=== PATIENT | male | born 1970 | race Caucasian/White ===

== ENCOUNTER 2023-09-05 20:16 | Inpatient (IN) | payer OTHER ==
[2023-09-05] MEDS: DILTIAZEM DRIP BOLUS FROM BAG 1 MG SOLN IV ONE (21:08)
[2023-09-05] MEDS: DILTIAZEM 125 MG in SODIUM CHLORIDE 0.9% 100 ML IV SCH (21:09)
[2023-09-05 21:13] LABS: Basophils # (A) 0.1 k/uL (0-0.2); Basophils % (A) 1 %; Eosinophils # (A) 0.3 k/uL (0-0.7); Eosinophils % (A) 2 %; HCT 36.7 % (39.0-53.0); Lymphocytes # (A) 2.2 k/uL (1.0-4.8); Lymphocytes % (A) 18 %; MCV 86.3 fL (80.0-100.0); Mean Platelet Volume 8.4; Monocytes # (A) 0.5 k/uL (0-1.0); Monocytes % (A) 4 %; Neutrophils % (A) 74 %; Platelet Count 222 k/uL (150-450); Poikilocytosis Slight; RBC 4.26 m/uL (4.30-5.90); RDW 14.9 % (11.5-15.5); WBC 12.2 k/uL (3.8-10.6)
[2023-09-05 21:15] LABS: MCH 30.4 pg (25.0-35.0); MCHC 35.5 g/dL (31.0-37.0)
[2023-09-05 21:25] LABS: INR 1.1 (<1.2); Partial Thromboplastin Time 31.5 sec (22.0-30.0); Prothrombin Time 12.2 sec (10.0-12.5)
[2023-09-05 21:27] LABS: ALT 17 U/L (4-49); AST 19 U/L (17-59); African American GFR (CKD) 67 (>60 ml/min/1.73 sqM); Albumin 4.2 g/dL (3.5-5.0); Alkaline Phosphatase 86 U/L (38-126); Anion Gap 12 mmol/L; Blood Urea Nitrogen 17 mg/dL (9-20); Calcium 9.2 mg/dL (8.4-10.2); Carbon Dioxide 19 mmol/L (22-30); Chloride 109 mmol/L (98-107); Glucose 112 mg/dL (74-99); Magnesium 1.7 mg/dL (1.6-2.3); Non-African American GFR(CKD) 58 (>60 ml/min/1.73 sqM); Potassium 4.2 mmol/L (3.5-5.1); Sodium 140 mmol/L (137-145); Total Bilirubin 1.6 mg/dL (0.2-1.3); Total Protein 7.2 g/dL (6.3-8.2)
--- NOTE | 2023-09-05 22:16 | ED ---
Arrhythmia/Palpitations HPI - General Chief Complaint: Arrhythmia/Palpitations Stated Complaint: Afib Time Seen by Provider: 09/05/23 20:40 Source: patient Mode of arrival: ambulatory Limitations: no limitations - History of Present Illness Initial Comments: 53-year-old male with history of atrial fibrillation presenting with chief complaint of elevated heart rate. Patient states that this started around noon today. Patient took extra dose of his metoprolol at home which did not help his symptoms. States that he does get dizziness with transferring from sitting to standing. Patient is on Xarelto. No chest pain, difficulty breathing, abdominal pain, nausea, vomiting, URI-like illness fever. - Related Data Home Medications Medication Instructions Recorded Confirmed Doxycycline Hyclate [Vibramycin] 100 mg PO BID 04/28/16 04/28/16 diphenhydrAMINE HCL [Benadryl] 25 - 50 mg PO Q6H PRN 04/28/16 04/28/16 lisinopriL [Prinivil] 10 mg PO DAILY 04/28/16 04/28/16 Previous Rx's Medication Instructions Recorded Aspirin 81 mg PO DAILY chew 04/30/16 Diltiazem Oral [Cardizem*] 30 mg PO TID #90 tab 04/30/16 Rivaroxaban [Xarelto] 20 mg PO W/SUPPER #30 tab 04/30/16 atenoloL [Tenormin] 25 mg PO DAILY #30 tab 04/30/16 Allergies Allergy/AdvReac Type Severity Reaction Status Date / Time Sulfa (Sulfonamide Allergy Anaphylaxis Verified 09/05/23 20:27 Antibiotics) Review of Systems ROS Statement: Those systems with pertinent positive or pertinent negative responses have been documented in the HPI. ROS Other: All systems not noted in ROS Statement are negative. Past Medical History Past Medical History: Hyperlipidemia, Hypertension Additional Past Medical History / Comment(s): Hypertension and hypertensive cardiovascular disease, hyperlipidemia, overweight, kidney stones. History of Any Multi-Drug Resistant Organisms: None Reported Past Surgical History: No Surgical Hx Reported Additional Past Surgical History / Comment(s): Sebaceous cyst removed from the back. Past Anesthesia/Blood Transfusion Reactions: No Reported Reaction Past Psychological History: No Psychological Hx Reported Smoking Status: Never smoker Past Alcohol Use History: Rare Past Drug Use History: None Reported - Past Family History Mother Family Medical History: COPD (Mother at age of 56 from pneumothorax and also had history of COPD.) Additional Family Medical History / Comment(s): pneumothorax Father Family Medical History: Vascular Disorder (Father at age of 61 from the abdominal aortic aneurysm.) Additional Family Medical History / Comment(s): aortic anuerysm Brother(s) Family Medical History: No Reported History (Patient has one brother no major medical problems) Sister(s) Family Medical History: No Reported History (Patient has one sister no major medical problems) Daughter(s) Family Medical History: No Reported History (Patient has 3 daughters no major me dical problems) Son(s) Family Medical History: No Reported History (Patient has one son no major medical problems) General Exam Limitations: no limitations General appearance: alert, in no apparent distress Head exam: Present: atraumatic, normocephalic Eye exam: Present: normal appearance Neck exam: Present: normal inspection Respiratory exam: Present: normal lung sounds bilaterally. Absent: respiratory distress, wheezes, rales, rhonchi, stridor Cardiovascular Exam: Present: normal rhythm, tachycardia, normal heart sounds. Absent: systolic murmur, diastolic murmur, rubs, gallop, clicks Neurological exam: Present: alert, oriented X3 Psychiatric exam: Present: normal affect, normal mood Skin exam: Present: warm, dry Course Vital Signs 09/05/23 09/05/23 09/05/23 20:22 20:51 21:13 Temperature 97.8 F Pulse Rate 138 H 134 H 112 H Pulse Rate [ Bilateral Sitting Radial] Respiratory 20 18 18 Rate Blood Pressure 140/99 156/114 156/114 Blood Pressure [Right Arm Supine] O2 Sat by Pulse 98 93 L 95 Oximetry 09/05/23 09/05/23 09/06/23 22:00 22:49 00:36 Temperature Pulse Rate 138 H 136 H Pulse Rate [ 67 Bilateral Sitting Radial] Respiratory 18 19 20 Rate Blood Pressure 156/115 156/115 Blood Pressure 149/108 [Right Arm Supine] O2 Sat by Pulse 95 97 93 L Oximetry 09/06/23 09/06/23 09/06/23 00:48 01:19 03:46 Temperature Pulse Rate 135 H 138 H Pulse Rate [ 90 Bilateral Sitting Radial] Respiratory 12 19 16 Rate Blood Pressure 135/92 142/94 Blood Pressure 149/108 [Right Arm Supine] O2 Sat by Pulse 92 L 94 L 92 L Oximetry EKG Findings - EKG Comments: EKG Findings:: Atrial flutter/tachycardia with rapid ventricular response with aberrant conduction or ventricular premature complexes. Ventricular rate 134. NE interval indeterminable. QRS 105. QT 300 QTc 379. Medical Decision Making - Medical Decision Making Was pt. sent in by a medical professional or institution (, [facility], [facility], urgent care, hospital, or care home...) When possible be specific @ -No Did you speak to anyone other than the patient for history (EMS, parent, family, police, friend...)? What history was obtained from this source @ -No Did you review nursing and triage notes (agree or disagree)? Why? @ -I reviewed and agree with nursing and triage notes Were old charts reviewed (outside hosp., previous admission, EMS record, old EKG, old radiological studies, urgent care reports/EKG's, care home records)? Report findings @ -No old charts were reviewed Differential Diagnosis (chest pain, altered mental status, abdominal pain women, abdominal pain men, vaginal bleeding, weakness, fever, dyspnea, syncope, headache, dizziness, GI bleed, back pain, seizure, CVA, palpatations, mental health, musculoskeletal)? @ -Differential Palpitations Ventricular arrhythmias, atrial arrhythmias, myocardial infarction, anemia, thyrotoxicosis, electrolyte imbalance, hypokalemia, pulmonary embolism, pulmonary disease, drugs, alcohol, anxiety, stress.... This is not meant to be an all-inclusive list. EKG interpreted by me (3pts min.). @ -As above X-rays interpreted by me (1pt min.). @ -Chest x-ray shows cardiomegaly with lung findings suggesting CHF. CT interpreted by me (1pt min.). @ -None done U/S interpreted by me (1pt. min.). @ -None done What testing was considered but not performed or refused? (CT, X-rays, U/S, labs)? Why? @ -None What meds were considered but not given or refused? Why? @ -Amiodarone was considered, however on reassessment the patient was ranging from 80 to 130 bpm, given this improvement the decision was made to continue Cardizem Did you discuss the management of the patient with other professionals (professionals i.e. , [facility], [facility], lab, RT, psych nurse, renal social worker, heading saw operator, teacher, credit administration officer, pillowcase cleaner)? Give summary @ -I spoke with Karishma Espinoza from [facility] [place] to excepted admission Was smoking cessation discussed for >3mins.? @ -No Was critical care preformed (if so, how long)? @ -No Were there social determinants of health that impacted care today? How? (Homelessness, low income, unemployed, alcoholism, drug addiction, transpo rtation, low edu. Level, literacy, decrease access to med. care, fdc, rehab)? @ -No Was there de-escalation of care discussed even if they declined (Discuss DNR or withdrawal of care, Hospice)? DNR status @ -No What co-morbidities impacted this encounter? (DM, HTN, Smoking, COPD, CAD, Cancer, CVA, ARF, Chemo, Hep., AIDS, mental health diagnosis, sleep apnea, morbid obesity)? @ -Atrial fibrillation, hypertension, hyperlipidemia Was patient admitted / discharged? Hospital course, mention meds given and route, prescriptions, significant lab abnormalities, going to OR and other pertinent info. @ -53-year-old male presenting with chief complaint of elevated heart rate. Patient has history of A-fib and states that he is having elevated heart rate since about noon today. He tried taking extra dose of his metoprolol which did not successfully bring down his heart rate. Heart rate is in the 130s. He admits to some dizziness with transferring from sitting to standing. History and physical exam are conducted. EKG shows atrial flutter with rapid ventricular response. Troponin is 0.025. BNP 6580. Chest x-ray shows cardiomegaly with changes suggestive of CHF. The patient has been told that he did recently have a stress test done that showed his ejection fraction was about 25%. Patient was given bolus of 10 mg of Cardizem and started on Cardizem drip at 10 mL/h. The patient's heart rate will range from the 80s to the 130s. It was considered that the patient may need to be started on amiodarone drip instead of Cardizem given his decreased ejection fraction, however given that he does have periods of heart rate sustained below 100bpm on cardizem, but is not consistently staying beneath 100 bpm, we will continue the Cardizem drip. Patient is on Xarelto. He was given 40 mg of Lasix. Patient will be admitted. He is agreeable to this plan. I discussed this case with my attending Dr. Torres. Undiagnosed new problem with uncertain prognosis? @ -No Drug Therapy requiring intensive monitoring for toxicity (Heparin, Nitro, Insulin, Cardizem)? @ -No Were any procedures done? @ -No Diagnosis/symptom? @ -Atrial fibrillation Acute, or Chronic, or Acute on Chronic? @ -Acute on chronic Uncomplicated (without systemic symptoms) or Complicated (systemic symptoms)? @ -Complicated Side effects of treatment? @ -No Exacerbation, Progression, or Severe Exacerbation? @ -No Poses a threat to life or bodily function? How? (Chest pain, [place], VA, pneumonia, PE, COPD, DKA, ARF, appy, cholecystitis, CVA, Diverticulitis, Homicidal, Suicidal, threat to staff... and all critical care pts) @ -Yes Diagnosis/symptom? @CHF Acute, or Chronic, or Acute on Chronic? @Acute Uncomplicated (without systemic symptoms) or Complicated (systemic symptoms)? @Complicated Side effects of treatment? @None Exacerbation, Progression, or Severe Exacerbation] @Exacerbation Poses a threat to life or bodily function? @Yes - Lab Data Result diagrams: 09/05/23 20:49 09/05/23 20:49 Lab Results 09/05/23 09/05/23 09/05/23 Range/Units 20:49 20:49 20:49 WBC 12.2 H (3.8-10.6) k/uL RBC 4.26 L (4.30-5.90) m/uL Hgb 13.0 (13.0-17.5) gm/dL Hct 36.7 L (39.0-53.0) % MCV 86.3 (80.0-100.0) fL MCH 30.4 (25.0-35.0) pg MCHC 35.5 (31.0-37.0) g/dL RDW 14.9 (11.5-15.5) % Plt Count 222 (150-450) k/uL MPV 8.4 Neutrophils % 74 % Lymphocytes % 18 % Monocytes % 4 % Eosinophils % 2 % Basophils % 1 % Neutrophils # 9.0 H (1.3-7.7) k/uL Lymphocytes # 2.2 (1.0-4.8) k/uL Monocytes # 0.5 (0-1.0) k/uL Eosinophils # 0.3 (0-0.7) k/uL Basophils # 0.1 (0-0.2) k/uL Poikilocytosis Slight PT 12.2 (10.0-12.5) sec INR 1.1 (<1.2) APTT 31.5 H (22.0-30.0) sec Sodium 140 (137-145) mmol/L Potassium 4.2 (3.5-5.1) mmol/L Chloride 109 H (98-107) mmol/L Carbon Dioxide 19 L (22-30) mmol/L Anion Gap 12 mmol/L BUN 17 (9-20) mg/dL Creatinine 1.39 H (0.66-1.25) mg/dL Est GFR (CKD-EPI)AfAm 67 (>60 ml/min/1.73 sqM) Est GFR (CKD-EPI)NonAf 58 (>60 ml/min/1.73 sqM) Glucose 112 H (74-99) mg/dL Calcium 9.2 (8.4-10.2) mg/dL Magnesium 1.7 (1.6-2.3) mg/dL Total Bilirubin 1.6 H (0.2-1.3) mg/dL AST 19 (17-59) U/L ALT 17 (4-49) U/L Alkaline Phosphatase 86 (38-126) U/L Troponin I (0.000-0.034) ng/mL NT-Pro-B Natriuret Pep pg/mL Total Protein 7.2 (6.3-8.2) g/dL Albumin 4.2 (3.5-5.0) g/dL Influenza Type A (PCR) (Not Detectd) Influenza Type B (PCR) (Not Detectd) RSV (PCR) (Not Detectd) SARS-CoV-2 (PCR) (Not Detectd) 09/05/23 09/05/23 09/05/23 Range/Units 20:49 20:49 21:12 WBC (3.8-10.6) k/uL RBC (4.30-5.90) m/uL Hgb (13.0-17.5) gm/dL Hct (39.0-53.0) % MCV (80.0-100.0) fL MCH (25.0-35.0) pg MCHC (31.0-37.0) g/dL RDW (11.5-15.5) % Plt Count (150-450) k/uL MPV Neutrophils % % Lymphocytes % % Monocytes % % Eosinophils % % Basophils % % Neutrophils # (1.3-7.7) k/uL Lymphocytes # (1.0-4.8) k/uL Monocytes # (0-1.0) k/uL Eosinophils # (0-0.7) k/uL Basophils # (0-0.2) k/uL Poikilocytosis PT (10.0-12.5) sec INR (<1.2) APTT (22.0-30.0) sec Sodium (137-145) mmol/L Potassium (3.5-5.1) mmol/L Chloride (98-107) mmol/L Carbon Dioxide (22-30) mmol/L Anion Gap mmol/L BUN (9-20) mg/dL Creatinine (0.66-1.25) mg/dL Est GFR (CKD-EPI)AfAm (>60 ml/min/1.73 sqM) Est GFR (CKD-EPI)NonAf (>60 ml/min/1.73 sqM) Glucose (74-99) mg/dL Calcium (8.4-10.2) mg/dL Magnesium (1.6-2.3) mg/dL Total Bilirubin (0.2-1.3) mg/dL AST (17-59) U/L ALT (4-49) U/L Alkaline Phosphatase (38-126) U/L Troponin I 0.025 (0.000-0.034) ng/mL NT-Pro-B Natriuret Pep 6580 pg/mL Total Protein (6.3-8.2) g/dL Albumin (3.5-5.0) g/dL Influenza Type A (PCR) Not Detected (Not Detectd) Influenza Type B (PCR) Not Detected (Not Detectd) RSV (PCR) Not Detected (Not Detectd) SARS-CoV-2 (PCR) Not Detected (Not Detectd) Disposition Clinical Impression: Atrial fibrillation, CHF (congestive heart failure) Disposition: ADMITTED IP TO THIS HOSP Condition: Fair Time of Disposition: 01:05
--- NOTE | 2023-09-05 23:58 | XR ---
EXAMINATION TYPE: XR chest 2V DATE OF EXAM: 09/05/2023 9:33 PM CLINICAL INDICATION:Male, 53 years old with history of dysrhythmia; [facility] COMPARISON: Portable chest 04/28/2016 TECHNIQUE: XR chest 2V. Frontal and lateral views of the chest.. FINDINGS: Lines/Tubes/Devices: EKG leads overlie the chest. No indwelling lines are seen. Heart/mediastinum: Heart size is stable, appears mildly to moderately enlarged. Slightly hazy medias tinal margins in keeping with vascular congestion. Pulmonary vascularity: Pulmonary vascular congestion. Increased interstitial markings can be seen wit h edema or pneumonitis. An element of chronic change is possible. Lungs/Pleura: Suspect mild bibasilar subsegmental atelectasis. There is no evidence of pleural effusi on, focal consolidation, or pneumothorax. Musculoskeletal: No acute osseous abnormality demonstrated in the limits of the exam. Other findings: None. IMPRESSION: Cardiomegaly with lung findings suggesting CHF. Please correlate clinically.
[2023-09-06] MEDS ORDERED: NALOXONE 0.4 MG/ML 1 ML VIAL IV PRN (01:04)
[2023-09-06] MEDS ORDERED: ACETAMINOPHEN TAB 325 MG TAB PO PRN (01:04)
[2023-09-06] MEDS: DILTIAZEM 125 MG in SODIUM CHLORIDE 0.9% 100 ML IV SCH (01:10)
[2023-09-06] MEDS: FUROSEMIDE 10 MG/ML 4 ML VIAL IV STA (01:14)
[2023-09-06] MEDS: DEXTROSE 5% IN WATER 100 ML with AMIODARONE 150 MG IV ONE (01:16)
[2023-09-06] MEDS: AMIODARONE 360 MG in DEXTROSE 5% IN WATER 200 ML IV ONE (01:17)
[2023-09-06] MEDS ORDERED: AMIODARONE 450 MG in DEXTROSE 5% IN WATER 250 ML IV SCH (07:00)
[2023-09-06] MEDS: ONDANSETRON 4 MG/2 ML VIAL IVP PRN (07:02)
[2023-09-06 07:13] LABS: Glucose,Whole Blood 97 mg/dL (70-110)
--- NOTE | 2023-09-06 10:20 | P.CRDCN ---
History of Present Illness History of present illness: HISTORY OF PRESENT ILLNESS: This is a 53-year-old male with a past medical history significant for atrial fluter, hypertension, hyperlipidemia, and morbid obesity. Patient follows in the office with Dr. Cameron. We have been asked to see the patient in consultation for A-fib with RVR and CHF. Patient examined at the bedside in the emergency room. Patient presented to the hospital with a chief complaint of palpitations. Patient reports that he began having palpitations yesterday at home. He states he did take an extra dose of his metoprolol but his palpitations persisted so he came to the emergency room. The patient does have a known history of atrial flutter and is scheduled for an atrial flutter ablation with Dr. Cameron on November 02, 2023. He reports he has been compliant with his medications at home including his anticoagulation. The patient currently denies any chest pain or pressure. He denies any shortness of breath. He currently appears euvolemic without signs or symptoms of congestive heart failure. He is currently on IV Cardizem at 12.5 mg an hour. Bedside telemetry reveals atrial flutter/atrial tachycardia with a heart rate around 130. DIAGNOSTICS: - EKG reveals atrial flutter/atrial tachycardia - Chest xray cardiomegaly with lung findings suggesting CHF. - Laboratory data: WBC 12.2. Hemoglobin 13.0. Platelet count 222. Sodium 140. Potassium 4.2. BUN 17. Creatinine 1.39. Troponin negative x 1. proBNP 6580 - Echocardiogram performed in the office in July 2023 revealed ejection fraction 20 to 25%, global hypokinesia, no LVH - Patient underwent Lexiscan stress test in July 2023 which was negative for ischemia REVIEW OF SYSTEMS: At the time of my exam: CONSTITUTIONAL: Denies fever or chills. HEENT: Denies blurred vision, vision changes, or eye pain. Denies hemoptysis CARDIOVASCULAR: Denies chest pain. Denies orthopnea. Denies PND. Denies palpitations RESPIRATORY: Denies shortness of breath. GASTROINTESTINAL: Denies abdominal pain. Denies nausea or vomiting. HEMATOLOGIC: Denies bleeding disorders. GENITOURINARY: Denies any blood in urine. SKIN: Denies pruitis. Denies rash. PHYSICAL EXAM: VITAL SIGNS: Reviewed. GENERAL: Well-developed in no acute distress. HEENT: Head is normocephalic. Pupils are equal, round. Sclerae anicteric. Mucous membranes of the mouth are moist. Neck supple. No JVD or thyromegaly LUNGS: Respirations even and unlabored. Lungs essentially clear to auscultation bilaterally. HEART: Tachycardic. Regular rate and rhythm. S1 and S2 heard. ABDOMEN: Soft. Nondistended. Nontender. EXTREMITIES: Normal range of motion. No clubbing or cyanosis. Peripheral pulses intact. No lower extremity edema NEUROLOGIC: Awake and alert. Oriented x 3. ASSESSMENT: Palpitations Persistent typical atrial flutter/atrial tachycardia History of cardiomyopathy, 20 to 25%, suspect nonischemic History of hypertension History of hyperlipidemia Acute kidney injury, creatinine 1.39 on admission PLAN: No need to repeat echocardiogram as this was performed in the office last month Continue IV Cardizem Continue telemetry monitoring Resume home cardiac medications once list has been verified If patient's heart rates remain uncontrolled with medications will consider cardioversion tomorrow Patient is scheduled for atrial flutter ablation with Dr. Cameron on 11/02/2023 Further recommendations pending patient course Nurse practitioner note has been reviewed by physician. Signing provider agrees with the documented findings, assessment, and plan of care documented by PSYCHOTHERAPIST SOCIAL WORKER as a scribe. Past Medical History Past Medical History: Hyperlipidemia, Hypertension Additional Past Medical History / Comment(s): Hypertension and hypertensive cardiovascular disease, hyperlipidemia, overweight, kidney stones. History of Any Multi-Drug Resistant Organisms: None Reported Past Surgical History: No Surgical Hx Reported Additional Past Surgical History / Comment(s): Sebaceous cyst removed from the back. Past Anesthesia/Blood Transfusion Reactions: No Reported Reaction Past Psychological History: No Psychological Hx Reported Smoking Status: Never smoker Past Alcohol Use History: Rare Past Drug Use History: None Reported - Past Family History Mother Family Medical History: COPD (Mother at age of 56 from pneumothorax and also had history of COPD.) Additional Family Medical History / Comment(s): pneumothorax Father Family Medical History: Vascular Disorder (Father at age of 61 from the abdominal aortic aneurysm.) Additional Family Medical History / Comment(s): aortic anuerysm Brother(s) Family Medical History: No Reported History (Patient has one brother no major medical problems) Sister(s) Family Medical History: No Reported History (Patient has one sister no major medical problems) Daughter(s) Family Medical History: No Reported History (Patient has 3 daughters no major medical problems) Son(s) Family Medical History: No Reported History (Patient has one son no major medical problems) Medications and Allergies Allergies Allergy/AdvReac Type Severity Reaction Status Date / Time Sulfa (Sulfonamide Allergy Anaphylaxis Verified 09/06/23 07:30 Antibiotics) Physical Exam Vitals: Vital Signs Temp Pulse Pulse Resp BP BP Pulse Ox 09/06/23 06:39 114 H 20 121/109 96 09/06/23 05:11 112 H 18 120/89 92 L 09/06/23 03:46 138 H 16 142/94 92 L 09/06/23 01:19 135 H 19 135/92 94 L 09/06/23 00:48 90 12 149/108 92 L 09/06/23 00:36 67 20 149/108 93 L 09/05/23 22:49 136 H 19 156/115 97 09/05/23 22:00 138 H 18 156/115 95 09/05/23 21:13 112 H 18 156/114 95 09/05/23 20:51 134 H 18 156/114 93 L 09/05/23 20:22 97.8 F 138 H 20 140/99 98 Intake and Output 09/05/23 09/06/23 09/06/23 22:59 06:59 14:59 Intake Total 4.583 Output Total 1700 400 Balance 4.583 -1700 -400 Intake: Intake, IV Titration 4.583 Amount Diltiazem 125 mg In 4.583 Sodium Chloride 0.9% 100 ml @ 5 MG/HR 5 mls/hr IV .Q24H [facility] Rx#:[id number] Output: Urine 1700 400 Other: Weight 104.326 kg Results 09/05/23 20:49 09/05/23 20:49 Cardiac Enzymes 09/05/23 09/05/23 Range/Units 20:49 20:49 AST 19 (17-59) U/L Troponin I 0.025 (0.000-0.034) ng/mL Coagulation 09/05/23 Range/Units 20:49 PT 12.2 (10.0-12.5) sec APTT 31.5 H (22.0-30.0) sec CBC 09/05/23 Range/Units 20:49 WBC 12.2 H (3.8-10.6) k/uL RBC 4.26 L (4.30-5.90) m/uL Hgb 13.0 (13.0-17.5) gm/dL Hct 36.7 L (39.0-53.0) % Plt Count 222 (150-450) k/uL Comprehensive Metabolic Panel 09/05/23 Range/Units 20:49 Sodium 140 (137-145) mmol/L Potassium 4.2 (3.5-5.1) mmol/L Chloride 109 H (98-107) mmol/L Carbon Dioxide 19 L (22-30) mmol/L BUN 17 (9-20) mg/dL Creatinine 1.39 H (0.66-1.25) mg/dL Glucose 112 H (74-99) mg/dL Calcium 9.2 (8.4-10.2) mg/dL AST 19 (17-59) U/L ALT 17 (4-49) U/L Alkaline Phosphatase 86 (38-126) U/L Total Protein 7.2 (6.3-8.2) g/dL Albumin 4.2 (3.5-5.0) g/dL Current Medications Generic Name Dose Route Start Last Admin Trade Name Freq PRN Reason Stop Dose Admin Acetaminophen 650 mg 09/06/23 01:04 Acetaminophen Tab 325 Mg Tab PO Q6HR PRN Mild Pain or Fever > 100.5 Diltiazem HCl 125 mg/ Sodium 125 mls @ 10 mls/hr 09/06/23 01:00 09/06/23 01:10 Chloride IV 10 mg/hr .[id number] BRIANDA 10 mls/hr Administration 10 MG/HR Naloxone HCl 0.2 mg 09/06/23 01:04 Naloxone 0.4 Mg/Ml 1 Ml Vial IV Q2M PRN Opioid Reversal Ondansetron HCl 4 mg 09/06/23 06:44 09/06/23 07:02 Ondansetron 4 Mg/2 Ml Vial IVP 4 mg Q6HR PRN Administration Nausea And Vomiting Intake and Output 09/05/23 09/06/23 09/06/23 22:59 06:59 14:59 Intake Total 4.583 Output Total 1700 400 Balance 4.583 -1700 -400 Intake: Intake, IV Titration 4.583 Amount Diltiazem 125 mg In 4.583 Sodium Chloride 0.9% 100 ml @ 5 MG/HR 5 mls/hr IV .Q24H [facility] Rx#:[id number] Output: Urine 1700 400 Other: Weight 104.326 kg 09/05/23 20:49 09/05/23 20:49
[2023-09-06] MEDS: METOPROLOL SUCCINATE (ER) 100 MG TAB.ER.24H PO SCH ×2 (11:55→12:05)
[2023-09-06] MEDS: APIXABAN 5 MG TAB PO SCH (11:55)
[2023-09-06] MEDS: DAPAGLIFLOZIN PROPANEDIOL 5 MG TABLET PO SCH (12:13)
[2023-09-06 12:14] LABS: Glucose,Whole Blood 126 mg/dL (70-110)
[2023-09-06 16:23] LABS: Glucose,Whole Blood 106 mg/dL (70-110)
[2023-09-06 20:24] LABS: Glucose,Whole Blood 115 mg/dL (70-110)
--- NOTE | 2023-09-06 20:42 | P.HPIM ---
History of Present Illness H&P Date: 09/06/23 HISTORY OF PRESENT ILLNESS: 53-year-old woman my office patient with known to have history of hypertension, atrial fibrillation with cardiomyopathy with ejection fraction down to 35 percentile, patient is seen Dr. Cameron electrophysiology and the plan is to go for ablation therapy sometimes and may. He developed over the last few weeks to have recurrent episodes of tachycardia not well-controlled with metoprolol and diltiazem. His call yesterday with a concern that his pulse rate is 135 to 140 bpm did not breath all day. He has been on metoprolol succinate total of 100 mg daily was instructed to take an extra 50 she called back after few hours claiming his pulse rate did not change at all. He was instructed to bring him to the emergency department at [facility] where he was seen and evaluated His pulse rate the arrival was 134 with a flutter/tachycardia with rapid ventricular response. Cardiology will call was started on Cardizem drip to keep his pulse rate down. Further vesication including influenza, RSV and COVID were all negative, laboratory evaluation showed creatinine to be 1.39 with GFR at 58 white blood cell was 12,200 with no sign of anemia. Chest x-ray shows mild cardiomegaly with mild congestion in the lung consistent with CHF. proBNP was 6580 troponin was negative. Patient be hospitalized will be seeing cardiology and he might need to go for cardioversion but his ablation might need to be done little bit early. REVIEW OF SYSTEMS: CONSTITUTIONAL: Well-developed mild respiratory distress EYES: No icterus sclerae, no conjunctivitis. EARS, NOSE, MOUTH, THROAT, and FACE: No sore throat, lymphadenopathy, carotid bruits or deformity. RESPIRATORY: Slight shortness of breath CARDIOVASCULAR: Positive. Palpitation no angina. GASTROINTESTINAL: No Abd pain, Nausea or vomiting, no Diarrhea or constipation, No GI Bleed, no distention or masses. GENITOURINARY: Negative for Hematuria or UTI, no kidney stones. INTEGUMENT/BREAST: Negative for any muscular injury with mild osteoarthritis.. HEMATOLOGIC/LYMPHATIC: Negative for bleed or purpura. MUSCULOSKELTAL: Negative for Myalgia or arthralgia. NEURLOGICAL: No LOC, Sz or syncope, blurred vision dizziness or abnormality.. BEHAVIORAL/PSYCH: Negative. ENDOCRINE: Negative. PHYSICAL EXAMINATION: General Appearance: Alert, cooperative, slightly distress. Neck HEENT: Supple, no lymphadenopathy, no thyroid enlargement, no carotid bruits. Lungs: Clear to auscultation with fine rhonchi in the bases with slight crackles on the right side. Chest Wall: Decreased with deep inspiration no tenderness and no deformity was found on exam, no costochondral pain or discomfort. Heart: Irregular rate and rhythm, S1, S2 positive tachycardia no murmur or gallop. Back: Symmetric, no curvature, ROM normal, no CVA tenderness. Abdomen: Soft, non-tender, bowel sounds active all four quadrants, no masses, no organomegaly. Extremities: Extremities normal, atraumatic, no cyanosis or edema. Pulses: 2+ and symmetric. Skin: Skin color, texture, tugor normal, no rashes or lesions. Neurologic: Alert oriented x3 cranial nerves II through XII intact, no motor deficit, no abnormal balance or gait. ASSESSMENT AND PLAN: _A-fib/a flutter with RVR: Patient is having a flutter at this point with pulse rate running 135 bpm continue Cardizem drip he is already on anticoagulation will consult cardiology echocardiogram was done recently by cardiology we will going to repeat an elevating and not will be left up to cardiology if possible. Patient might need to be started on amiodarone and she might need to go for cardioversion after transesophageal echocardiogram in the next 24 hours. _Severe dyspnea and shortness of breath mostly A-fib cardiomyopathy causing more low ejection fraction and mild congestion in both lung zambrano consistent with CHF can benefit from low-grade of diuretics. _Cardiomyopathy: Nonischemic hide this is most likely from A-fib and not controlled so far with medication. Still symptomatic require more management and treatment been on beta-mustapha patient might benefit from being on Entresto or at least ARB. _Hypertension: Was well-controlled on lisinopril along with diltiazem 30 mg 3 times a day and metoprolol succinate 100 mg daily titrate medication hide try to keep systolic blood pressure below 130. _Acute kidney injury: Most likely from hypoperfusion with the severity of his A- fib treat underlying disease continue hydration watch kidney function more ca refully. _Anticoagulation: Has been on Xarelto 20 mg a day doing well with it. Resume medication. _GI prophylaxis: Patient will be on Pepcid 20 mg daily. CODE STATUS: Full code. Admit patient to the inpatient service for 1-2 night stay. Past Medical History Past Medical History: Hyperlipidemia, Hypertension Additional Past Medical History / Comment(s): Hypertension and hypertensive cardiovascular disease, hyperlipidemia, overweight, kidney stones. History of Any Multi-Drug Resistant Organisms: None Reported Past Surgical History: No Surgical Hx Reported Additional Past Surgical History / Comment(s): Sebaceous cyst removed from the back. Past Anesthesia/Blood Transfusion Reactions: No Reported Reaction Past Psychological History: No Psychological Hx Reported Smoking Status: Never smoker Past Alcohol Use History: Rare Past Drug Use History: None Reported - Past Family History Mother Family Medical History: COPD (Mother at age of 56 from pneumothorax and als o had history of COPD.) Additional Family Medical History / Comment(s): pneumothorax Father Family Medical History: Vascular Disorder (Father at age of 61 from the abdominal aortic aneurysm.) Additional Family Medical History / Comment(s): aortic anuerysm Brother(s) Family Medical History: No Reported History (Patient has one brother no major medical problems) Sister(s) Family Medical History: No Reported History (Patient has one sister no major me dical problems) Daughter(s) Family Medical History: No Reported History (Patient has 3 daughters no major medical problems) Son(s) Family Medical History: No Reported History (Patient has one son no major medical problems) Medications and Allergies Home Medications Medication Instructions Recorded Confirmed Type Apixaban [Eliquis] 5 mg PO BID 09/06/23 09/06/23 History Empagliflozin [Jardiance] 10 mg PO DAILY 09/06/23 09/06/23 History Insulin Glargine,Hum.rec.anlog 40 units SQ DAILY@1700 09/06/23 09/06/23 History [Lantus Solostar Pen] Metoprolol Succinate (ER) [Toprol 100 mg PO DAILY 09/06/23 09/06/23 History Xl] Semaglutide [Ozempic] 0.5 mg SQ FR 09/06/23 09/06/23 History Telmisartan [Micardis] 40 mg PO DAILY 09/06/23 09/06/23 History metFORMIN HCL [Glucophage] 1,000 mg PO BID 09/06/23 09/06/23 History tadalafiL 10 mg PO DAILY PRN 09/06/23 09/06/23 History Allergies Allergy/AdvReac Type Severity Reaction Status Date / Time Sulfa (Sulfonamide Allergy Anaphylaxis Verified 09/06/23 10:17 Antibiotics) Physical Exam Vitals: Vital Signs Temp Pulse Pulse Resp BP BP Pulse Ox 09/06/23 05:11 112 H 18 120/89 92 L 09/06/23 03:46 138 H 16 142/94 92 L 09/06/23 01:19 135 H 19 135/92 94 L 09/06/23 00:48 90 12 149/108 92 L 09/06/23 00:36 67 20 149/108 93 L 09/05/23 22:49 136 H 19 156/115 97 09/05/23 22:00 138 H 18 156/115 95 09/05/23 21:13 112 H 18 156/114 95 09/05/23 20:51 134 H 18 156/114 93 L 09/05/23 20:22 97.8 F 138 H 20 140/99 98 Intake and Output 09/05/23 09/05/23 09/06/23 14:59 22:59 06:59 Intake Total 4.583 Output Total 1700 Balance 4.583 -1700 Intake: Intake, IV Titration 4.583 Amount Diltiazem 125 mg In 4.583 Sodium Chloride 0.9% 100 ml @ 5 MG/HR 5 mls/hr IV .Q24H [facility] Rx#:[id number] Output: Urine 1700 Other: Weight 104.326 kg Results CBC & Chem 7: 09/05/23 20:49 09/05/23 20:49 Labs: Abnormal Lab Results - Last 24 Hours (Table) 09/05/23 09/05/23 09/05/23 Range/Units 20:49 20:49 20:49 WBC 12.2 H (3.8-10.6) k/uL RBC 4.26 L (4.30-5.90) m/uL Hct 36.7 L (39.0-53.0) % Neutrophils # 9.0 H (1.3-7.7) k/uL APTT 31.5 H (22.0-30.0) sec Chloride 109 H (98-107) mmol/L Carbon Dioxide 19 L (22-30) mmol/L Creatinine 1.39 H (0.66-1.25) mg/dL Glucose 112 H (74-99) mg/dL Total Bilirubin 1.6 H (0.2-1.3) mg/dL
[2023-09-07 06:09] LABS: Glucose,Whole Blood 108 mg/dL (70-110)
[2023-09-07] MEDS: INSULIN ASPART (NovoLOG) 100 UNIT/ML VIAL SQ SCH (06:41)
[2023-09-07] MEDS ORDERED: INSULIN ASPART (NovoLOG) 100 UNIT/ML VIAL SQ SCH (07:30)
[2023-09-07] MEDS: LOSARTAN 50 MG TAB PO SCH (08:00)
[2023-09-07 11:31] LABS: Glucose,Whole Blood 90 mg/dL (70-110)
[2023-09-07] MEDS: DILTIAZEM CD 180 MG CAP.ER.24H PO SCH (12:40)
--- NOTE | 2023-09-07 13:19 | P.PN ---
Subjective HISTORY OF PRESENT ILLNESS: This is a 53-year-old male with a past medical history significant for atrial fluter, hypertension, hyperlipidemia, and morbid obesity. Patient follows in the office with Dr. Cameron. We have been asked to see the patient in consultation for A-fib with RVR and CHF. Patient examined at the bedside in the emergency ro . Patient presented to the hospital with a chief complaint of palpitations. Patient reports that he began having palpitations yesterday at home. He states he did take an extra dose of his metoprolol but his palpitations persisted so he came to the emergency room. The patient does have a known history of atrial flutter and is scheduled for an atrial flutter ablation with Dr. Cmaeron on November 02, 2023. He reports he has been compliant with his medications at home including his anticoagulation. The patient currently denies any chest pain or pressure. He denies any shortness of breath. He currently appears euvolemic without signs or symptoms of congestive heart failure. He is currently on IV Cardizem at 12.5 mg an hour. Bedside telemetry reveals atrial flutter/atrial tachycardia with a heart rate around 130. DIAGNOSTICS: - EKG reveals atrial flutter/atrial tachycardia - Chest xray cardiomegaly with lung findings suggesting CHF. - Laboratory data: WBC 12.2. Hemoglobin 13.0. Platelet count 222. Sodium 140. Potassium 4.2. BUN 17. Creatinine 1.39. Troponin negative x 1. proBNP 6580 - Echocardiogram performed in the office in July 2023 revealed ejection fraction 20 to 25%, global hypokinesia, no LVH - Patient underwent Lexiscan stress test in July 2023 which was negative for ischemia 09/07/2023 Patient examined this morning at the bedside. Patient currently denies chest pain or pressure. He denies shortness of breath. Patient remains in atrial fibrillation with a heart rate in the low 100s. He remains on IV Cardizem at 10 mg an hour. Blood pressure stable. Patient does report compliance with his Eliquis and states he has not missed any doses. PHYSICAL EXAM: VITAL SIGNS: Reviewed. GENERAL: Well-developed in no acute distress. HEENT: Head is normocephalic. Pupils are equal, round. Sclerae anicteric. Mucous membranes of the mouth are moist. Neck supple. No JVD or thyromegaly LUNGS: Respirations even and unlabored. Lungs essentially clear to auscultation bilaterally. HEART: Tachycardic. Regular rate and rhythm. S1 and S2 heard. ABDOMEN: Soft. Nondistended. Nontender. EXTREMITIES: Normal range of motion. No clubbing or cyanosis. Peripheral pulses intact. No lower extremity edema NEUROLOGIC: Awake and alert. Oriented x 3. ASSESSMENT: Palpitations Persistent typical atrial flutter/atrial tachycardia History of cardiomyopathy, 20 to 25%, suspect nonischemic History of hypertension History of hyperlipidemia Acute kidney injury, creatinine 1.39 on admission PLAN: No need to repeat echocardiogram as this was performed in the office last month Discontinue IV Cardizem. Begin oral Cardizem 180 mg daily Continue telemetry monitoring N.p.o. at midnight. Patient will undergo cardioversion tomorrow with Dr. Cameron. Patient is scheduled for atrial flutter ablation with Dr. Cameron on 11/02/2023 Further recommendations pending patient course Nurse practitioner note has been reviewed by physician. Signing provider agrees with the documented findings, assessment, and plan of care documented by [employer] as a scribe. Objective - Vital Signs Vital signs: Vital Signs Temp 97.6 F 09/06/23 19:44 Pulse 90 09/07/23 04:26 Resp 18 09/07/23 04:26 BP 134/79 09/07/23 04:26 Pulse Ox 96 09/07/23 04:26 FiO2 Intake & Output 09/06/23 09/07/23 09/07/23 18:59 06:59 18:59 Intake Total 353.667 74.167 110 Output Total 400 Balance -46.333 74.167 110 Weight 104.326 kg 100.2 kg Intake: Intake, IV Titration 131.667 74.167 Amount Diltiazem 125 mg In 131.667 74.167 Sodium Chloride 0.9% 100 ml @ 10 MG/HR 10 mls/hr IV .[id number] [facility] Rx#: [id number] Oral 222 110 Output: Urine 400 Other: # Voids 1 - Labs CBC & Chem 7: 09/05/23 20:49 09/05/23 20:49 Labs: Abnormal Lab Results - Last 24 Hours (Table) 09/06/23 09/06/23 Range/Units 12:13 20:23 POC Glucose (mg/dL) 126 H 115 H (70-110) mg/dL
[2023-09-07 16:19] LABS: Glucose,Whole Blood 149 mg/dL (70-110)
[2023-09-07 20:29] LABS: Glucose,Whole Blood 136 mg/dL (70-110)
[2023-09-07] MEDS: SODIUM CHLORIDE 0.9% 1,000 ML IV SCH ×2 (20:45)
[2023-09-08] MEDS: DILTIAZEM 125 MG in SODIUM CHLORIDE 0.9% 100 ML IV SCH (02:25)
--- NOTE | 2023-09-08 05:39 | P.PN ---
Subjective Progress Note Date: 09/07/23 HISTORY OF PRESENT ILLNESS: 53-year-old woman my office patient with known to have history of hypertension, atrial fibrillation with cardiomyopathy with ejection fraction down to 35 percentile, patient is seen Dr. Cameron electrophysiology and the plan is to go for ablation therapy sometimes and may. He developed over the last few weeks to have recurrent episodes of tachycardia not well-controlled with metoprolol and diltiazem. His call yesterday with a concern that his pulse rate is 135 to 140 bpm did not breath all day. He has been on metoprolol succinate total of 100 mg daily was instructed to take an extra 50 she called back after few hours claiming his pulse rate did not change at all. He was instructed to bring him to the emergency department at [facility] where he was seen and evaluated His pulse rate the arrival was 134 with a flutter/tachycardia with rapid ventricular response. Cardiology will call was started on Cardizem drip to keep his pulse rate down. Further vesication including influenza, RSV and COVID were all negative, laboratory evaluation showed creatinine to be 1.39 with GFR at 58 white blood cell was 12,200 with no sign of anemia. Chest x-ray shows mild cardiomegaly with mild congestion in the lung consistent with CHF. proBNP was 6580 troponin was negative. Patient be hospitalized will be seeing cardiology and he might need to go for cardioversion but his ablation might need to be done little bit early. 09/07/2023: Patient was seen cardiology yesterday planning for cardioversion today after transesophageal echocardiogram, fortunately pulse rate become much better and slower rate on Cardizem drip 10 mg an hour did not require to be on amiodarone specially patient had initial reaction to amiodarone drip by creating significant bradycardia. After holding off on amiodarone and continuing this current management patient still developed to have atrial flutter with on and off A-fib in between cardiology about point decided to keep the plan for cardioversion for tomorrow originally was supposed to have cardioversion on 09/07/2023 but because of his lower pulse decided not to initially till midday when he continues to have significant arrhythmia on and off the electrophysiology was called the plan at this point to change to have him go for cardioversion on 09/08/2023. REVIEW OF SYSTEMS: CONSTITUTIONAL: Well-developed mild respiratory distress EYES: No icterus sclerae, no conjunctivitis. EARS, NOSE, MOUTH, THROAT, and FACE: No sore throat, lymphadenopathy, carotid bruits or deformity. RESPIRATORY: Slight shortness of breath CARDIOVASCULAR: Positive.Palpitation no angina. GASTROINTESTINAL: No Abd pain, Nausea or vomiting, no Diarrhea or constipation, No GI Bleed, no distention or masses. GENITOURINARY: Negative for Hematuria or UTI, no kidney stones. INTEGUMENT/BREAST: Negative for any muscular injury with mild osteoarthritis.. HEMATOLOGIC/LYMPHATIC: Negative for bleed or purpura. MUSCULOSKELTAL: Negative for Myalgia or arthralgia. NEURLOGICAL: No LOC, Sz or syncope, blurred vision dizziness or abnormality.. BEHAVIORAL/PSYCH: Negative. ENDOCRINE: Negative. PHYSICAL EXAMINATION: General Appearance: Alert, cooperative, slightly distress. Neck HEENT: Supple, no lymphadenopathy, no thyroid enlargement, no carotid bruit s. Lungs: Clear to auscultation with fine rhonchi in the bases with slight crackles on the right side. Chest Wall: Decreased with deep inspiration no tenderness and no deformity was found on exam, no costochondral pain or discomfort. Heart: Irregular rate and rhythm, S1, S2 positive tachycardia no murmur or gallop. Back: Symmetric, no curvature, ROM normal, no CVA tenderness. Abdomen: Soft, non-tender, bowel sounds active all four quadrants, no masses, no organomegaly. Extremities: Extremities normal, atraumatic, no cyanosis or edema. Pulses: 2+ and symmetric. Skin: Skin color, texture, tugor normal, no rashes or lesions. Neurologic: Alert oriented x3 cranial nerves II through XII intact, no motor deficit, no abnormal balance or gait. ASSESSMENT AND PLAN: _A-fib/a flutter with RVR: Patient is having a flutter at this point with pulse rate running 135 bpm continue Cardizem drip he is already on anticoagulation apparently an attempt for amiodarone drip patient became severely bradycardic was stopped. Patient scheduled to go for cardioversion today after tra nsesophageal echocardiogram last was converted and back into slower pulse rate. On the long run patient scheduled for ablation therapy sometimes in October. _Severe dyspnea and shortness of breath mostly A-fib cardiomyopathy causing more low ejection fraction and mild congestion in both lung zambrano consistent with CHF can benefit from low-grade of diuretics. _Cardiomyopathy: Nonischemic hide this is most likely from A-fib and not controlled so far with medication. Still symptomatic require more management and treatment been on beta-mustapha patient might benefit from being on Entresto or at least ARB. _Type 2 diabetes: Was on metformin and Jardiance along with Lantus 40 units daily: Continue Accu-Chek with sliding scale coverage will continue Jardiance and hold metformin for now. _Hypertension: Pressures well-controlled on metoprolol and diltiazem will titrate medication higher if needed. _Acute kidney injury: Most likely from hypoperfusion with the severity of his A- fib treat underlying disease continue hydration watch kidney function more carefully. _Anticoagulation: Has been on Eliquis 5 mg twice a day _GI prophylaxis: Patient will be on Pepcid 20 mg daily. Management: Originally was scheduled to have cardioversion we will plan change because his pulse rate becomes lower, that day patient developed to have significant atrial flutter with in and out A-fib we will plan again change at that point was giving Cardizem CD180 mg and try to wean him off Cardizem drip still on metoprolol succinate 150 mg daily and as in addition patient was initiated Farxiga 5 mg a day should be titrated up to 10 mg eventually. Hopefully will plan to go for cardioversion if he is doing well as early as tomorrow which is to be patient can be discharged home on better management after his cardioversion and in prepare hopefully for ablation therapy sometimes in October. Objective - Vital Signs Vital signs: Vital Signs Temp 97.6 F 09/06/23 19:44 Pulse 90 09/07/23 04:26 Resp 18 09/07/23 04:26 BP 134/79 09/07/23 04:26 Pulse Ox 96 09/07/23 04:26 FiO2 Intake & Output 09/06/23 09/06/23 09/07/23 06:59 18:59 06:59 Intake Total 4.583 353.667 74.167 Output Total 1700 400 Balance -1695.417 -46.333 74.167 Weight 104.326 kg 104.326 kg 100.2 kg Intake: Intake, IV Titration 4.583 131.667 74.167 Amount Diltiazem 125 mg In 131.667 74.167 Sodium Chloride 0.9% 100 ml @ 10 MG/HR 10 mls/hr IV .[id number] [facility] Rx#: [id number] Diltiazem 125 mg In 4.583 Sodium Chloride 0.9% 100 ml @ 5 MG/HR 5 mls/hr IV .Q24H [facility] Rx#:[id number] Oral 222 Output: Urine 1700 400 Other: # Voids 1 - Labs CBC & Chem 7: 09/05/23 20:49 09/05/23 20:49 Labs: Abnormal Lab Results - Last 24 Hours (Table) 09/06/23 09/06/23 Range/Units 12:13 20:23 POC Glucose (mg/dL) 126 H 115 H (70-110) mg/dL
[2023-09-08 05:56] LABS: Glucose,Whole Blood 110 mg/dL (70-110)
[2023-09-08] MEDS: SODIUM CHLORIDE 0.9% 1,000 ML IV ONE (06:30)
[2023-09-08 06:31] VITALS: RESP 16
[2023-09-08] MEDS ORDERED: PROPOFOL 10 MG/ML 20 ML VIAL IV ONE (07:00)
[2023-09-08] MEDS ORDERED: HEPARIN SODIUM,PORCINE 5,000 UNIT/ML 1 ML VIAL ONE (07:00)
--- NOTE | 2023-09-08 07:15 | P.EPPROC ---
- EP Procedure Note Electrophysiology Procedure Note: Electrical cardioversion for refractory atrial fibrillation, organized Twelve-lead EKG after rate control shows (atrial fibrillation, upright atrial signals in V1 and upright in inferior leads Atrial cycle length about 240 ms Refractory to rate control Details Successful electrical cardioversion with a 200 J biphasic shock PACs and PVCs noted post cardioversion Plan discontinue calcium channel blockers IV as well as p.o. Continue metoprolol at a higher dose of 150 mg p.o. daily Continue antihypertensive therapy and diabetes management medications Continue apixaban uninterrupted If patient is hemodynamically stable he may be discharged in the evening today
[2023-09-08 08:19] VITALS: TEMP 98.4
[2023-09-08 09:41] LABS: HCT 42.8 % (39.0-53.0); MCH 29.4 pg (25.0-35.0); MCHC 32.8 g/dL (31.0-37.0); MCV 89.8 fL (80.0-100.0); Mean Platelet Volume 7.9; Platelet Count 273 k/uL (150-450); RBC 4.77 m/uL (4.30-5.90); RDW 14.5 % (11.5-15.5); WBC 10.1 k/uL (3.8-10.6)
[2023-09-08 09:56] LABS: ALT 19 U/L (4-49); AST 21 U/L (17-59); African American GFR (CKD) 64 (>60 ml/min/1.73 sqM); Albumin 3.9 g/dL (3.5-5.0); Alkaline Phosphatase 71 U/L (38-126); Anion Gap 11 mmol/L; Blood Urea Nitrogen 24 mg/dL (9-20); Calcium 8.9 mg/dL (8.4-10.2); Carbon Dioxide 24 mmol/L (22-30); Chloride 107 mmol/L (98-107); Glucose 185 mg/dL (74-99); Non-African American GFR(CKD) 55 (>60 ml/min/1.73 sqM); Potassium 3.8 mmol/L (3.5-5.1); Sodium 142 mmol/L (137-145); Total Bilirubin 1.3 mg/dL (0.2-1.3); Total Protein 6.9 g/dL (6.3-8.2)
[2023-09-08 11:28] LABS: Glucose,Whole Blood 128 mg/dL (70-110)
[2023-09-08 11:38] VITALS: BP 112/72; PULSE 88
--- NOTE | 2023-09-08 13:29 | CDI ---
Documentation Clarification Form Date: 09/08/2023 01:10:55 PM From: Wilma Shea RN CCDS Phone: [phone] Admit Date: 09/06/2023 01:39:00 AM Patient Name: Darryn Rangel Visit Number: [id number] Discharge Date: ATTENTION: The Clinical Documentation Specialists (CDI) and [facility] Coding Staff appreciate your assistance in clarifying documentation. Please respond to the clarification below the line at the bottom and electronically sign. The CDI & [facility] Coding staff will review the response and follow-up if needed. Please note: Queries are made part of the Legal Health Record. If you have any questions, please contact the author of this message via ITS. Dr. Wilfrid Cheung Your patient has the documented diagnosis of unspecified CHF 09/06, Medicine note. Additional information regarding the type, acuity of CHF is requested. History/Risk Factors: 53-year-old male presents to the ED pulse ate 135 to 140, sent in by cardiology. Medical History: HTN, Cardiomyopathy, non ischemic, and cardiovascular disease. 09/05, H&P Clinical Indicators: VS/Pulse OX: B/P 140/99, HR 138, Temp 97.8F oral, RR 20, SpO2 98% room air. BNP, 09/04: 6580 Echocardiogram Results from Cardiology consult, 09/05: Echocardiogram performed in the office in July 2023 revealed ejection fraction 20 to 25%, global hypokinesia, no LVH Chest X Ray, 09/04: Lungs / pleura: Suspect mild bibasilar sub segmental atelectasis. Pulmonary vascularity: Pulmonary vascular congestion. Increased interstitial markings can be seen with edema or pneumonitis. Treatment: 09/05 Lasix IV x 1, 11/05 11/07 Farxiga 5mg po daily, 09/05 Toprol XL 150mg po daily In your professional opinion, can you please clarify the acuity and type of CHF if known? [ ] Acute on Chronic Systolic Heart Failure (reduced EF) [ xx ] Other, please specify_Non Ischemic Cardiomyopathy [ ] Unable to determine (Template Last Revised: July 2020) MTDD
--- NOTE | 2023-09-08 13:31 | P.PN ---
Subjective HISTORY OF PRESENT ILLNESS: This is a 53-year-old male with a past medical history significant for atrial fluter, hypertension, hyperlipidemia, and morbid obesity. Patient follows in the office with Dr. Cameron. We have been asked to see the patient in consultation for A-fib with RVR and CHF. Patient examined at the bedside in the emergency ro . Patient presented to the hospital with a chief complaint of palpitations. Patient reports that he began having palpitations yesterday at home. He states he did take an extra dose of his metoprolol but his palpitations persisted so he came to the emergency room. The patient does have a known history of atrial flutter and is scheduled for an atrial flutter ablation with Dr. Cameron on November 02, 2023. He reports he has been compliant with his medications at home including his anticoagulation. The patient currently denies any chest pain or pressure. He denies any shortness of breath. He currently appears euvolemic without signs or symptoms of congestive heart failure. He is currently on IV Cardizem at 12.5 mg an hour. Bedside telemetry reveals atrial flutter/atrial tachycardia with a heart rate around 130. DIAGNOSTICS: - EKG reveals atrial flutter/atrial tachycardia - Chest xray cardiomegaly with lung findings suggesting CHF. - Laboratory data: WBC 12.2. Hemoglobin 13.0. Platelet count 222. Sodium 140. Potassium 4.2. BUN 17. Creatinine 1.39. Troponin negative x 1. proBNP 6580 - Echocardiogram performed in the office in July 2023 revealed ejection fraction 20 to 25%, global hypokinesia, no LVH - Patient underwent Lexiscan stress test in July 2023 which was negative for ischemia 09/07/2023 Patient examined this morning at the bedside. Patient currently denies chest pain or pressure. He denies shortness of breath. Patient remains in atrial fibrillation with a heart rate in the low 100s. He remains on IV Cardizem at 10 mg an hour. Blood pressure stable. Patient does report compliance with his Eliquis and states he has not missed any doses. 09/08/2023 Patient is status post cardioversion this morning with Dr. Cameron. Patient examined this afternoon at the bedside. Patient's family is present. Patient denies chest pain or pressure. He denies shortness of breath. Vital signs are stable. PHYSICAL EXAM: VITAL SIGNS: Reviewed. GENERAL: Well-developed in no acute distress. HEENT: Head is normocephalic. Pupils are equal, round. Sclerae anicteric. Mucous membranes of the mouth are moist. Neck supple. No JVD or thyromegaly LUNGS: Respirations even and unlabored. Lungs essentially clear to auscultation bilaterally. HEART: Regular rate and rhythm. S1 and S2 heard. ABDOMEN: Soft. Nondistended. Nontender. EXTREMITIES: Normal range of motion. No clubbing or cyanosis. Peripheral pulses intact. No lower extremity edema NEUROLOGIC: Awake and alert. Oriented x 3. ASSESSMENT: Palpitations Persistent typical atrial flutter/atrial tachycardia, status post cardioversion History of cardiomyopathy, 20 to 25%, suspect nonischemic History of hypertension History of hyperlipidemia Acute kidney injury, creatinine 1.39 on admission PLAN: Continue current cardiac medications Continue increased dose of metoprolol 150 mg daily Patient is scheduled for atrial flutter ablation with Dr. Cameron on 11/02/2023 Patient is stable for discharge home today from a cardiac standpoint Nurse practitioner note has been reviewed by physician. Signing provider agrees with the documented findings, assessment, and plan of care documented by [employer] as a scribe. Objective - Vital Signs Vital signs: Vital Signs Temp 98.4 F 09/08/23 08:06 Pulse 88 09/08/23 11:10 Resp 16 09/08/23 11:10 BP 112/72 09/08/23 11:10 Pulse Ox 98 09/08/23 11:10 FiO2 Intake & Output 09/07/23 09/08/23 09/08/23 18:59 06:59 18:59 Intake Total 345 290 705 Balance 345 290 705 Weight 100.5 kg Intake: IV 50 Intake, IV Titration 125 Amount Diltiazem 125 mg In 125 Sodium Chloride 0.9% 100 ml @ 10 MG/HR 10 mls/hr IV .[id number] BRIANDA Rx#: [id number] Oral 220 240 705 Other: Voiding Method Toilet Toilet Toilet # Voids 1 1 - Labs CBC & Chem 7: 09/08/23 09:23 09/08/23 09:23 Labs: Abnormal Lab Results - Last 24 Hours (Table) 09/07/23 09/07/23 09/08/23 Range/Units 16:15 20:27 09:23 BUN 24 H (9-20) mg/dL Creatinine 1.44 H (0.66-1.25) mg/dL Glucose 185 H (74-99) mg/dL POC Glucose (mg/dL) 149 H 136 H (70-110) mg/dL 09/08/23 Range/Units 11:26 BUN (9-20) mg/dL Creatinine (0.66-1.25) mg/dL Glucose (74-99) mg/dL POC Glucose (mg/dL) 128 H (70-110) mg/dL
--- NOTE | 2023-09-09 23:12 | P.DS ---
Providers Date of admission: 09/06/23 01:39 Attending physician: Wilfrid Cheung Consults: 09/06/23 01:04 Consult Physician Urgent Consulting Provider: [facility] Consult Reason/Comments: A-fib with RVR, CHF Do you want consulting provider notified?: Yes, Notify in am Primary care physician: Wilfrid Cheung [facility] Course: HISTORY OF PRESENT ILLNESS: 53-year-old woman my office patient with known to have history of hypertension, atrial fibrillation with cardiomyopathy with ejection fraction down to 35 percentile, patient is seen Dr. Cameron electrophysiology and the plan is to go for ablation therapy sometimes and may. He developed over the last few weeks to have recurrent episodes of tachycardia not well-controlled with metoprolol and diltiazem. His call yesterday with a concern that his pulse rate is 135 to 140 bpm did not breath all day. He has been on metoprolol succinate total of 100 mg daily was instructed to take an extra 50 she called back after few hours claiming his pulse rate did not change at all. He was instructed to bring him to the emergency department at [facility] where he was seen and evaluated His pulse rate the arrival was 134 with a flutter/tachycardia with rapid ventricular response. Cardiology will call was started on Cardizem drip to keep his pulse rate down. Further vesication including influenza, RSV and COVID were all negative, laboratory evaluation showed creatinine to be 1.39 with GFR at 58 white blood cell was 12,200 with no sign of anemia. Chest x-ray shows mild cardiomegaly with mild congestion in the lung consistent with CHF. proBNP was 6580 troponin was negative. Patient be hospitalized will be seeing cardiology and he might need to go for cardioversion but his ablation might need to be done little bit early. 09/07/2023: Patient was seen cardiology yesterday planning for cardioversion today after transesophageal echocardiogram, fortunately pulse rate become much better and slower rate on Cardizem drip 10 mg an hour did not require to be on amiodarone specially patient had initial reaction to amiodarone drip by creating significant bradycardia. After holding off on amiodarone and continuing this current management patient still developed to have atrial flutter with on and off A-fib in between cardiology about point decided to keep the plan for cardioversion for tomorrow originally was supposed to have cardioversion on 09/07/2023 but because of his lower pulse decided not to initially till midday when he continues to have significant arrhythmia on and off the electrophysiology was called the plan at this point to change to have him go for cardioversion on 09/08/2023. REVIEW OF SYSTEMS: CONSTITUTIONAL: Well-developed mild respiratory distress EYES: No icterus sclerae, no conjunctivitis. EARS, NOSE, MOUTH, THROAT, and FACE: No sore throat, lymphadenopathy, carotid bruits or deformity. RESPIRATORY: Slight shortness of breath CARDIOVASCULAR: Positive.Palpitation no angina. GASTROINTESTINAL: No Abd pain, Nausea or vomiting, no Diarrhea or constipation, No GI Bleed, no distention or masses. GENITOURINARY: Negative for Hematuria or UTI, no kidney stones. INTEGUMENT/BREAST: Negative for any muscular injury with mild osteoarthritis.. HEMATOLOGIC/LYMPHATIC: Negative for bleed or purpura. MUSCULOSKELTAL: Negative for Myalgia or arthralgia. NEURLOGICAL: No LOC, Sz or syncope, blurred vision dizziness or abnormality.. BEHAVIORAL/PSYCH: Negative. ENDOCRINE: Negative. PHYSICAL EXAMINATION: General Appearance: Alert, cooperative, slightly distress. Neck HEENT: Supple, no lymphadenopathy, no thyroid enlargement, no carotid bruits. Lungs: Clear to auscultation with fine rhonchi in the bases with slight crackles on the right side. Chest Wall: Decreased with deep inspiration no tenderness and no deformity was found on exam, no costochondral pain or discomfort. Heart: Irregular rate and rhythm, S1, S2 positive tachycardia no murmur or gallop. Back: Symmetric, no curvature, ROM normal, no CVA tenderness. Abdomen: Soft, non-tender, bowel sounds active all four quadrants, no masses, no organomegaly. Extremities: Extremities normal, atraumatic, no cyanosis or edema. Pulses: 2+ and symmetric. Skin: Skin color, texture, tugor normal, no rashes or lesions. Neurologic: Alert oriented x3 cranial nerves II through XII intact, no motor deficit, no abnormal balance or gait. ASSESSMENT AND PLAN: _A-fib/a flutter with RVR: Patient is having a flutter at this point with pulse rate running 135 bpm continue Cardizem drip he is already on anticoagulation apparently an attempt for amiodarone drip patient became severely bradycardic was stopped. Patient scheduled to go for cardioversion today after transesophageal echocardiogram last was converted and back into slower pulse rate. On the long run patient scheduled for ablation therapy sometimes in October. _Severe dyspnea and shortness of breath mostly A-fib cardiomyopathy causing more low ejection fraction and mild congestion in both lung zambrano consistent with CHF can benefit from low-grade of diuretics. _Cardiomyopathy: Nonischemic hide this is most likely from A-fib and not controlled so far with medication. Still symptomatic require more management and treatment been on beta-mustapha patient might benefit from being on Entresto or at least ARB. _Type 2 diabetes: Was on metformin and Jardiance along with Lantus 40 units daily: Continue Accu-Chek with sliding scale coverage will continue Jardiance and hold metformin for now. _Hypertension: Pressures well-controlled on metoprolol and diltiazem will titrate medication higher if needed. _Acute kidney injury: Most likely from hypoperfusion with the severity of his A- fib treat underlying disease continue hydration watch kidney function more carefully. _Anticoagulation: Has been on Eliquis 5 mg twice a day _GI prophylaxis: Patient will be on Pepcid 20 mg daily. Management: Originally was scheduled to have cardioversion we will plan change because his pulse rate becomes lower, that day patient developed to have significant atrial flutter with in and out A-fib we will plan again change at that point was giving Cardizem CD180 mg and try to wean him off Cardizem drip still on metoprolol succinate 150 mg daily and as in addition patient was ini tiated Farxiga 5 mg a day should be titrated up to 10 mg eventually. Hopefully will plan to go for cardioversion if he is doing well as early as tomorrow which is to be patient can be discharged home on better management after his cardioversion and in prepare hopefully for ablation therapy sometimes in October. Hospital course: Patient was admitted with A-fib/a flutter with RVR and possibly currently being in the 120s to 140 bpm/min start on amiodarone drip developed to have severe bradycardia was aborted and started back on Cardizem drip. Continue to go in and out of rapid ventricular response despite the titration of Cardizem despite hiring the dose of metoprolol. Finally cardiology decided to do cardioversion on 09/08/2023, procedure went with no complication patient remained in sinus rhythm afterward pulse rate did drop down to the 70s and 80s. Will finalize his medication patient be sent home today to see our service and see cardiology as an outpatient next few days. Time spent on discharging patient was over 35 minutes. Patient Condition at Discharge: Fair Plan - Discharge Summary Discharge Rx Participant: No New Discharge Prescriptions: New Metoprolol Succinate (ER) [Toprol XL] 150 mg PO DAILY tab Continue tadalafiL 10 mg PO DAILY PRN PRN Reason: E.D. Apixaban [Eliquis] 5 mg PO BID metFORMIN HCL [Glucophage] 1,000 mg PO BID Empagliflozin [Jardiance] 10 mg PO DAILY Semaglutide [Ozempic] 0.5 mg SQ FR Telmisartan [Micardis] 40 mg PO DAILY Insulin Glargine,Hum.rec.anlog [Lantus Solostar Pen] 40 units SQ DAILY@1700 Discontinued Metoprolol Succinate (ER) [Toprol Xl] 100 mg PO DAILY Discharge Medication List Apixaban [Eliquis] 5 mg PO BID 09/06/23 [History] Empagliflozin [Jardiance] 10 mg PO DAILY 09/06/23 [History] Insulin Glargine,Hum.rec.anlog [Lantus Solostar Pen] 40 units SQ DAILY@1700 09/06/23 [History] Semaglutide [Ozempic] 0.5 mg SQ FR 09/06/23 [History] Telmisartan [Micardis] 40 mg PO DAILY 09/06/23 [History] metFORMIN HCL [Glucophage] 1,000 mg PO BID 09/06/23 [History] tadalafiL 10 mg PO DAILY PRN 09/06/23 [History] Metoprolol Succinate (ER) [Toprol XL] 150 mg PO DAILY tab 09/08/23 [Rx] Follow up Appointment(s)/Referral(s): Yaron Cameron MD [STAFF PHYSICIAN] - 09/15/23 9:15 am Wilfrid Cheung MD [Primary Care Provider] - 09/10/23 1:15 pm Patient Instructions/Handouts: A-fib (Atrial Fibrillation) (DC), Cardioversion (DC) Discharge Disposition: HOME SELF-CARE
== END 2023-09-08 13:12 | disposition home or self-care (01) | DRG 309 ==
LOC: EC 20:16 → 3SCARD 09-06 01:05 → OBSVTOIN 09-06 01:39 → 3SCARD 09-06 03:40
PROVIDERS: ADMIT Internal Medicine Geriatric Medicine; ATTEND Internal Medicine Geriatric Medicine
PROC: 3E033RZ Introduction of Antiarrhythmic into Peripheral Vein, Percutaneous Approach (ICD-10-PCS; principal; 2023-09-06)
PROC: 5A2204Z Restoration of Cardiac Rhythm, Single (ICD-10-PCS; 2023-09-08)
DX: I48.91 Unspecified atrial fibrillation (principal); N17.9 Acute kidney failure, unspecified; I48.3 Typical atrial flutter; E78.5 Hyperlipidemia, unspecified; I42.8 Other cardiomyopathies; I47.19 Other supraventricular tachycardia; E11.9 Type 2 diabetes mellitus without complications; I11.0 Hypertensive heart disease with heart failure; R00.1 Bradycardia, unspecified; T46.2X5A Adverse effect of other antidysrhythmic drugs, initial encounter; E66.01 Morbid (severe) obesity due to excess calories; Z68.30 Body mass index [BMI] 30.0-30.9, adult; I50.9 Heart failure, unspecified; Z79.899 Other long term (current) drug therapy; Z79.84 Long term (current) use of oral hypoglycemic drugs; Z79.82 Long term (current) use of aspirin; Z79.01 Long term (current) use of anticoagulants; Z11.52 Encounter for screening for COVID-19; Z88.2 Allergy status to sulfonamides
CPT/HCPCS: 36415; 71046; 80053; 83735; 83880; 84484; 85025; 85027; 85610; 85730; 87636; 92960; 93005; 96365; 96366; 96375; 99285

== ENCOUNTER → 2023-12-22 | Outpatient (CLI) | payer MEDICAID ==
[2023-12-22 15:25] LABS: HCT 46.5 % (39.6-50.0); HGB 15.4 g/dL (13.0-17.0); MCH 29.1 pg (27.0-32.0); MCHC 33.1 g/dL (32.0-37.0); MCV 87.9 FL (80.0-97.0); Mean Platelet Volume 10.6 FL (9.5-12.2); NRBC Per 100 WBC 0 X 10*3/uL (0.00-0.01); Platelet Count 275 X 10*3/uL (140-440); RBC 5.29 X 10*6/uL (4.40-5.60); RDW 13.9 % (11.5-14.5); WBC 8.43 X 10*3/uL (4.50-10.00)
[2023-12-22 15:27] LABS: Blood Urea Nitrogen 26.5 mg/dL (9.0-27.0); Carbon Dioxide 22.5 mmol/L (21.6-31.8); Chloride 103 mmol/L (96-109); Sodium 138 mmol/L (135-145)
== END | disposition home or self-care (01) ==
LOC: LABPAT 10:10
PROVIDERS: ATTEND Internal Medicine Clinical Cardiac Electrophysiology
DX: Z01.812 Encounter for preprocedural laboratory examination (principal); I48.92 Unspecified atrial flutter; I50.9 Heart failure, unspecified; I42.8 Other cardiomyopathies
CPT/HCPCS: 80051; 82565; 84520; 85027

== ENCOUNTER 2024-01-03 09:09 | Day surgery (SDC) | payer MEDICAID, OTHER ==
[2024-01-03] MEDS: SODIUM CHLORIDE 0.9% 1,000 ML IV ONE (09:25)
[2024-01-03 09:27] LABS: Glucose,Whole Blood 108 mg/dL (70-110)
[2024-01-03] MEDS ORDERED: LIDOCAINE 1% INJ 10MG/ML (20 ML MDV) ONE (09:43)
[2024-01-03 10:32] LABS: ALT 20 U/L (4-49); AST 22 U/L (17-59); African American GFR (CKD) 62 (>60 ml/min/1.73 sqM); Albumin 4.6 g/dL (3.5-5.0); Alkaline Phosphatase 73 U/L (38-126); Anion Gap 12 mmol/L; Blood Urea Nitrogen 21 mg/dL (9-20); Calcium 9.3 mg/dL (8.4-10.2); Carbon Dioxide 22 mmol/L (22-30); Chloride 107 mmol/L (98-107); Glucose 107 mg/dL (74-99); Non-African American GFR(CKD) 54 (>60 ml/min/1.73 sqM); Potassium 4.2 mmol/L (3.5-5.1); Sodium 141 mmol/L (137-145); Total Bilirubin 1.1 mg/dL (0.2-1.3); Total Protein 7.9 g/dL (6.3-8.2)
[2024-01-03] MEDS ORDERED: GLYCOPYRROLATE 0.2 MG/ML 2 ML VIAL ONE (11:02)
[2024-01-03] MEDS ORDERED: PHENYLEPHRINE 10 MG/ML VIAL ONE (11:02)
[2024-01-03] MEDS ORDERED: MIDAZOLAM 2 MG/2 ML VIAL ONE (11:02)
[2024-01-03] MEDS ORDERED: SUCCINYLCHOLINE CHLORIDE 200 MG/10 ML VIAL IV ONE (11:02)
[2024-01-03] MEDS ORDERED: ETOMIDATE 2 MG/ML 10 ML VIAL ONE (11:02)
[2024-01-03] MEDS ORDERED: HEPARIN SODIUM,PORCINE 10,000 UNIT/ML 1 ML VIAL ONE (11:02)
[2024-01-03] MEDS ORDERED: ROCURONIUM 10 MG/ML (5 ML VIAL) IV ONE (11:02)
[2024-01-03] MEDS ORDERED: NEOSTIGMINE 1 MG/ML 10 ML VIAL ONE (11:02)
[2024-01-03] MEDS ORDERED: fentaNYL (PF) 50 MCG/ML 2 ML AMP ONE (11:02)
[2024-01-03] MEDS: HEPARIN SODIUM,PORCINE 10,000 UNIT in SODIUM CHLORIDE 0.9% 1,000 ML IRRIGATION ONE (11:15)
[2024-01-03] MEDS: LIDOCAINE 1% INJ 10MG/ML (20 ML MDV) SQ ONE (11:52)
[2024-01-03] MEDS: HEPARIN SODIUM (1,000 UNIT/ML) 1,000 UNIT in SODIUM CHLORIDE 0.9% 1,000 ML IRRIGATION ONE (13:03)
[2024-01-03] MEDS: SODIUM CHLORIDE 0.9% 500 ML 500 ML IV ONE (13:10)
--- NOTE | 2024-01-03 13:42 | P.HPCAR ---
History of Present Illness This is Dr. Cameron dictating an H/P on this patient The patient was interviewed and examined IMPRESSION / ASSESSMENT: History of paroxysmal atrial fibrillation with RVR, upright P waves in V1, upright P waves in the inferior leads, cyclin 240 ms Status post electrical cardioversion for a symptomatic episode refractory to medical treatment Typical atrial flutter Known cardiomyopathy Lexiscan Cardiolite stress test did not show any evidence for ischemia in July 2023, left ventricular ejection fraction 35% In July his left ventricle ejection fraction was 25% global hypokinesis on 2D echo PLAN: EP study and radiofrequency ablation for atrial flutter Continue anticoagulation Continue cardiomyopathy/heart failure medications -4 pillar therapy Reassessment of LV function on medical treatment Continue HPI According to the patient's , the patient does complain of palpitations off-and-on heart rates between 90-100 beats a minute However he denies any chest discomfort no undue shortness of breath no dizziness lightheadedness Denies any fever chills cough ROS: No fever chills or rigors, no cough, phlegm or expectoration, no nausea, vomiting or diarrhea, no hematuria, dysuria, no musculoskeletal complaints, no strok es or seizures, no skin lesions. EXAMINATION: 162/93 mmHg pulse rate in the 70s and regular Afebrile No JVD Clear lungs no rhonchi no crackles Heart sounds S1-S2 normal No murmurs REVIEW OF LABS, ECG & MEDICAL DATA Sodium 141 potassium 4.2 BUN 21 creatinine 1.48 Normal liver function Normal TSH Physical Exam Vitals: Vital Signs Temp Pulse Resp BP Pulse Ox 01/03/24 09:37 97.8 F 73 16 162/93 98 Intake and Output 01/02/24 01/03/24 01/03/24 22:59 06:59 14:59 Intake Total 1352 Balance 1352 Intake: IV 1352 Other: Weight 99.3 kg Past Medical History Past Medical History: Diabetes Mellitus, Hyperlipidemia, Hypertension Additional Past Medical History / Comment(s): Hypertension and hypertensive cardiovascular disease, hyperlipidemia, overweight, hx kidney stones. see Dr Cameron's History. History of Any Multi-Drug Resistant Organisms: None Reported Past Surgical History: No Surgical Hx Reported Additional Past Surgical History / Comment(s): Sebaceous cyst removed from the b ack. cardioversion Past Anesthesia/Blood Transfusion Reactions: No Reported Reaction Smoking Status: Never smoker - Past Family History Mother Family Medical History: COPD Additional Family Medical History / Comment(s): pneumothorax Father Family Medical History: Vascular Disorder Additional Family Medical History / Comment(s): aortic anuerysm Brother(s) Family Medical History: No Reported History Sister(s) Family Medical History: No Reported History Daughter(s) Family Medical History: No Reported History Son(s) Family Medical History: No Reported History Physical Examination Vital Signs Temp Pulse Resp BP Pulse Ox 01/03/24 09:37 97.8 F 73 16 162/93 98 Intake and Output 01/02/24 01/03/24 01/03/24 22:59 06:59 14:59 Intake Total 1352 Balance 1352 Intake: IV 1352 Other: Weight 99.3 kg Results 01/03/24 09:17 Cardiac Enzymes 01/03/24 Range/Units 09:17 AST 22 (17-59) U/L Comprehensive Metabolic Panel 01/03/24 Range/Units 09:17 Sodium 141 (137-145) mmol/L Potassium 4.2 (3.5-5.1) mmol/L Chloride 107 (98-107) mmol/L Carbon Dioxide 22 (22-30) mmol/L BUN 21 H (9-20) mg/dL Creatinine 1.48 H (0.66-1.25) mg/dL Glucose 107 H (74-99) mg/dL Calcium 9.3 (8.4-10.2) mg/dL AST 22 (17-59) U/L ALT 20 (4-49) U/L Alkaline Phosphatase 73 (38-126) U/L Total Protein 7.9 (6.3-8.2) g/dL Albumin 4.6 (3.5-5.0) g/dL Current Medications Generic Name Dose Route Start Last Admin Trade Name Freq PRN Reason Stop Dose Admin Lactated Ringer's 1,000 mls @ 20 mls/hr 01/03/24 05:48 Lactated Ringers IV 02/02/24 05:47 .Q24H BRIANDA Lactated Ringer's 1,000 mls @ 20 mls/hr 01/03/24 05:48 Lactated Ringers IV 02/02/24 05:47 .Q24H BRIANDA Sodium Chloride 1,000 mls @ 20 mls/hr 01/03/24 05:48 Saline 0.9% IV 02/02/24 05:47 .Q24H BRIANDA Intake and Output 01/02/24 01/03/24 01/03/24 22:59 06:59 14:59 Intake Total 1352 Balance 1352 Intake: IV 1352 Other: Weight 99.3 kg Patient Weight 01/04/24 06:59 Weight 99.3 kg 01/03/24 09:17
--- NOTE | 2024-01-03 13:54 | P.EPPROC ---
- EP Procedure Note Electrophysiology Procedure Note: Diagnosis Typical atrial flutter Paroxysmal atrial fibrillation/organized atrial tachycardia with RVR, refractory to therapy History of cardiomyopathy, Lexiscan did not show any evidence for ischemia Left ventricular ejection fraction 25 to 35% depending upon the test On 4 Pillar heart failure therapy Final diagnosis Intracardiac echo revealed persistent LV cardiomyopathy despite despite 4-pillar heart failure therapy, normal RV size and function A pouch shaped isthmus, cavo-tricuspid Successful atrial flutter ablation with bidirectional block with differential pacing Very easily inducible atrial fibrillation/organized atrial tachycardia with mechanical stimulation of the right atrium First arrhythmia had a cycle length up 240 ms, with biphasic T waves in V1 and upright in the inferior leads, concentric activation and the coronary sinus During mapping of this tachycardia in the right atrium, a different arrhythmia. Now with a cycle length of 210 ms, concentric activation in the coronary sinus Details Patient was brought to the EP lab in a fasting state. Written informed consent was obtained prior to the procedure. General anesthesia provided Venous sheaths placed in the right left femoral veins Diagnostic catheters placed in the high right atrium His bundle area coronary sinus Intracardiac echo catheter placed A long sheath with an irrigated RF ablation catheter placed The patient was in sinus rhythm at the start of the study with a prolonged CT interval Baseline measurements were as follows: Sinus cycle length 781 ms, CT interval 220, QRS 108 ms QT 405 ms AH 110 HV interval 54 ms AV node Wenckebach block 320 ms 3D electroanatomic mapping performed Intracardiac echo mapping performed Normal RV size and function Pouch shaped isthmus Reduced LV systolic function Electroanatomic mapping of the cavotricuspid isthmus The complete RF line of block made This line was interrogated with pacing maneuvers Complete bidirectional block with differential pacing achieved Isthmus conduction time greater than 160 ms Following that atrial pacing was performed With catheter manipulation along the septum, an atrial tachycardia/rapid atrial fibrillation induced This is a concentric activation in the coronary sinus with biphasic P waves in V1 and upright in the inferior leads Right atrium was first mapped and a broad activation was noted in the septal area As the free wall was being mapped this tachycardia changed it cycle length of 210 ms, concentric activation of the coronary sinus IV heparin 6000 given Electrical cardioversion performed Patient already on anticoagulation p.o. AV node Wenckebach block 320 ms Postprocedure no pericardial effusion by intracardiac echo Patient tolerated procedure well without any acute complications Venous sheaths were closed with Vascade closure device
--- NOTE | 2024-01-03 14:02 | P.PRLE ---
RE: Darryn Rangel Dear Dr. nomi Rangel underwent successful atrial flutter ablation with complete bidirectional block. However intracardiac echo revealed persistence of cardiomyopathy despite 4 pillar heart failure medical treatment He also has very easily inducible atrial fibrillation After 4 weeks of anticoagulation following this ablation, I will reassess for other causes of cardiomyopathy and then subsequently will recommend an A-fib ablation Thank you for entrusting me with the care of the patient Warm regards Sincerely Yaron Cameron
[2024-01-03] MEDS ORDERED: INSULIN DETEMIR (LEVEMIR) 100 UNIT/ML SYR SQ PRN (14:04)
[2024-01-03] MEDS ORDERED: NON FORMULARY DRUG (Tadalafil [Tadalafil] 10 MG Tablet) PO PRN (14:04)
[2024-01-03 14:10] LABS: Glucose,Whole Blood 122 mg/dL (70-110)
[2024-01-03 16:47] LABS: Glucose,Whole Blood 101 mg/dL (70-110)
[2024-01-03] MEDS: metFORMIN 500 MG TAB PO SCH (16:51)
[2024-01-03] MEDS: APIXABAN 5 MG TAB PO SCH (19:48)
[2024-01-03] MEDS: LACTATED RINGERS 1,000 ML IV SCH ×2 (21:02)
[2024-01-03] MEDS: SODIUM CHLORIDE 0.9% 1,000 ML IV SCH (21:02)
[2024-01-04 05:48] LABS: Glucose,Whole Blood 95 mg/dL (70-110)
[2024-01-04 08:18] LABS: HCT 43.1 % (39.0-53.0); HGB 14.4 gm/dL (13.0-17.5); MCH 30.1 pg (25.0-35.0); MCHC 33.3 g/dL (31.0-37.0); MCV 90.4 fL (80.0-100.0); Mean Platelet Volume 8.1; Platelet Count 205 k/uL (150-450); RBC 4.77 m/uL (4.30-5.90); RDW 13.9 % (11.5-15.5); WBC 7.9 k/uL (3.8-10.6)
[2024-01-04 08:50] LABS: Neutrophils % (M) 61 %; Nucleated Red Blood Cells 0 /100 WBC (0-0); Total Cells Counted 100
[2024-01-04 08:52] LABS: Eosinophils # (M) 0.32 k/uL (0-0.7); Lymphocytes # (M) 2.29 k/uL (1.0-4.8); Monocytes # (M) 0.47 k/uL (0-1.0); Neutrophils # (M) 4.82 k/uL (1.3-7.7)
[2024-01-04] MEDS: METOPROLOL SUCCINATE (ER) 100 MG TAB.ER.24H PO SCH (09:23)
[2024-01-04] MEDS: LOSARTAN 50 MG TAB PO SCH (09:24)
[2024-01-04] MEDS: DAPAGLIFLOZIN PROPANEDIOL 5 MG TABLET PO SCH (09:24)
[2024-01-04 11:47] LABS: Glucose,Whole Blood 98 mg/dL (70-110)
--- NOTE | 2024-01-04 13:24 | P.PN ---
Subjective Progress Note Date: 01/04/24 The patient was interviewed and examined IMPRESSION / ASSESSMENT: History of paroxysmal atrial fibrillation with RVR, upright P waves in V1, upright P waves in the inferior leads, cyclin 240 ms Status post electrical cardioversion for a symptomatic episode refractory to medical treatment Typical atrial flutter Status post successful atrial flutter ablation Known cardiomyopathy persistent despite 4 Pillar heart failure medical treatment Lexiscan Cardiolite stress test did not show any evidence for ischemia in July 2023, left ventricular ejection fraction 35% In July his left ventricle ejection fraction was 25% global hypokinesis on 2D echo PLAN: EP study and radiofrequency ablation for atrial flutter Continue anticoagulation Continue cardiomyopathy/heart failure medications -4 pillar therapy Reassessment of LV function on medical treatment Discontinue ARB and start Entresto Repeat blood work in the morning Continue current medications. Patient is agreeable to stay for 1 more night for monitoring. HPI According to the patient's , the patient does complain of palpitations off-and-on heart rates between 90-100 beats a minute However he denies any chest discomfort no undue shortness of breath no dizziness lightheadedness Denies any fever chills cough. Patient states the groin site is less tender today. No sign of hematoma or bleeding. EXAMINATION: 150/71 mmHg pulse rate in the 80s and regular Afebrile No JVD Clear lungs no rhonchi no crackles Heart sounds S1-S2 normal No murmurs REVIEW OF LABS, ECG & MEDICAL DATA Sodium 141 potassium 4.2 BUN 21 creatinine 1.48 Normal liver function Normal TSH Nurse practitioner note has been reviewed, I agree with documented findings and plan of care. Patient was seen and examined. Objective - Vital Signs Vital signs: Vital Signs Temp 97.9 F 01/04/24 09:20 Pulse 92 01/04/24 09:21 Resp 17 01/04/24 09:20 BP 138/79 01/04/24 09:20 Pulse Ox 96 01/04/24 09:20 FiO2 Intake & Output 01/03/24 01/04/24 01/04/24 18:59 06:59 18:59 Intake Total 1922 118 Output Total 1155 200 Balance 1921 -5 - Weight 99.3 kg 98.2 kg Intake: IV 1352 Oral 570 118 Output: Urine 1155 200 Straight 355 Other: Voiding Method Urinal Urinal - Labs CBC & Chem 7: 07/16/24 07:25 01/03/24 09:17 Labs: Abnormal Lab Results - Last 24 Hours (Table) 01/03/24 01/03/24 Range/Units 09:17 14:09 BUN 21 H (9-20) mg/dL Creatinine 1.48 H (0.66-1.25) mg/dL Glucose 107 H (74-99) mg/dL POC Glucose (mg/dL) 122 H (70-110) mg/dL
[2024-01-04 16:50] LABS: Glucose,Whole Blood 119 mg/dL (70-110)
[2024-01-04] MEDS: SACUBITRIL/VALSARTAN 24 MG-26 MG TABLET PO SCH (19:40)
[2024-01-04 20:04] LABS: Glucose,Whole Blood 95 mg/dL (70-110)
[2024-01-05 01:25] VITALS: RESP 18
[2024-01-05 05:58] LABS: Glucose,Whole Blood 103 mg/dL (70-110)
[2024-01-05 08:20] VITALS: TEMP 98.4
[2024-01-05 09:13] LABS: African American GFR (CKD) 75 (>60 ml/min/1.73 sqM); Anion Gap 11 mmol/L; Blood Urea Nitrogen 16 mg/dL (9-20); Calcium 9.4 mg/dL (8.4-10.2); Carbon Dioxide 20 mmol/L (22-30); Chloride 110 mmol/L (98-107); Glucose 110 mg/dL (74-99); Magnesium 1.6 mg/dL (1.6-2.3); Non-African American GFR(CKD) 65 (>60 ml/min/1.73 sqM); Potassium 3.7 mmol/L (3.5-5.1); Sodium 141 mmol/L (137-145)
--- NOTE | 2024-01-05 10:58 | P.DS ---
Providers Expected date of discharge: 01/05/24 Attending physician: Yaron Cameron Primary care physician: [facility] Course: The patient was interviewed and examined IMPRESSION / ASSESSMENT: History of paroxysmal atrial fibrillation with RVR, upright P waves in V1, upright P waves in the inferior leads, cyclin 240 ms Status post electrical cardioversion for a symptomatic episode refractory to medical treatment Typical atrial flutter Status post successful atrial flutter ablation Known cardiomyopathy persistent despite 4 Pillar heart failure medical treatment Lexiscan Cardiolite stress test did not show any evidence for ischemia in 2023, left ventricular ejection fraction 35% In July his left ventricle ejection fraction was 25% global hypokinesis on 2D echo PLAN: Status post EP study and radiofrequency ablation for atrial flutter Continue anticoagulation Continue cardiomyopathy/heart failure medications -4 pillar therapy Reassessment of LV function on medical treatment Continue patient on Entresto Patient is cleared for discharge and may follow-up in the office in 1 week HPI Patient is seen today in follow-up. Yesterday ARB was discontinued and he was started on Entresto 24-26 mg twice daily. Blood pressure is 169/85, heart rate 87, pulse ox 96% on room air. Patient states that he has been walking and also sitting up in a chair. He is in a sinus rhythm. Repeat blood work reveals sodium 141, potassium 3.7, creatinine 1.26. EXAMINATION: Afebrile No JVD Clear lungs no rhonchi no crackles Heart sounds S1-S2 normal No murmurs Nurse practitioner note has been reviewed, I agree with documented findings and plan of care. Patient was seen and examined. Patient Condition at Discharge: Stable Plan - Discharge Summary Discharge Rx Participant: No New Discharge Prescriptions: New Sacubitril/Valsartan [Entresto 24 mg-26 mg Tablet] 1 each PO BID #180 tab Continue tadalafiL 10 mg PO DAILY PRN PRN Reason: E.D. Apixaban [Eliquis] 5 mg PO BID metFORMIN HCL [Glucophage] 1,000 mg PO BID Empagliflozin [Jardiance] 10 mg PO DAILY Semaglutide [Ozempic] 0.5 mg SQ FR Insulin Glargine,Hum.rec.anlog [Lantus Solostar Pen] 40 units SQ DAILY@1700 PRN PRN Reason: BS > 150 in evening Metoprolol Succinate (ER) [Toprol XL] 150 mg PO DAILY tab Discontinued Telmisartan [Micardis] 60 mg PO DAILY Discharge Medication List Apixaban [Eliquis] 5 mg PO BID 09/06/23 [History] Empagliflozin [Jardiance] 10 mg PO DAILY 09/06/23 [History] Insulin Glargine,Hum.rec.anlog [Lantus Solostar Pen] 40 units SQ DAILY@1700 PRN 09/06/23 [History] Semaglutide [Ozempic] 0.5 mg SQ FR 09/06/23 [History] metFORMIN HCL [Glucophage] 1,000 mg PO BID 09/06/23 [History] tadalafiL 10 mg PO DAILY PRN 09/06/23 [History] Metoprolol Succinate (ER) [Toprol XL] 150 mg PO DAILY tab 09/08/23 [Rx] Sacubitril/Valsartan [Entresto 24 mg-26 mg Tablet] 1 each PO BID #180 tab 01/05/24 [Rx] Follow up Appointment(s)/Referral(s): Yaron Cameron MD [STAFF PHYSICIAN] - 10 Days Activity/Diet/Wound Care/Special Instructions: Post EP study - Ablation instructions 1. Keep access sites dry for 2 days. 2. No heavy lifting or straining for 2 days. 3. Avoid bending the hips repeatedly for 2 days. 4. You may go up and down stairs slowly Call if the following is noted 1. Bleeding, increasing swelling or pain at the access sites. 2. Increasing chest discomfort, especially upon taking a deep breath. 3. Increasing shortness of breath, at rest or with exertion. 4. Undue cough / phlegm 5. Difficulty or pain while swallowing. 6. Pain or change in color in the extremities. 7. Fever, chills, rigors. 8. Increasing headache or neurologic symptoms. 9. Dizziness, fainting, palpitations Discharge Disposition: HOME SELF-CARE
[2024-01-05 11:45] LABS: Glucose,Whole Blood 152 mg/dL (70-110)
[2024-01-05] MEDS: METOPROLOL SUCCINATE (ER) 100 MG TAB.ER.24H PO SCH (12:06)
[2024-01-05 12:09] VITALS: BP 153/93; PULSE 99
[2024-01-07] MEDS ORDERED: NON FORMULARY DRUG (Semaglutide [Ozempic] 0.25 MG/0.368 ML Pen.Injctr) SQ SCH (14:04)
== END 2024-01-05 13:28 | disposition home or self-care (01) ==
LOC: CATHEP 09:09 → 3SCARD 15:30 → CATHEP 01-05 13:28
PROVIDERS: ATTEND Internal Medicine Clinical Cardiac Electrophysiology
DX: I48.0 Paroxysmal atrial fibrillation (principal); E11.9 Type 2 diabetes mellitus without complications; E78.5 Hyperlipidemia, unspecified; I11.0 Hypertensive heart disease with heart failure; I50.9 Heart failure, unspecified; I48.3 Typical atrial flutter; I47.19 Other supraventricular tachycardia; I42.9 Cardiomyopathy, unspecified; I44.1 Atrioventricular block, second degree; Z79.01 Long term (current) use of anticoagulants; Z79.899 Other long term (current) drug therapy
CPT/HCPCS: 92960; 93662; 93653; 86900; 86901; 80053; 80048; 84443; 83735; 85025; 86850; C1759; C1894; C1769 ×2; C1760; C1766; C1730; C1732; J1644 ×2; J2001

== ENCOUNTER 2024-04-30 01:39 | Inpatient (IN) | payer MEDICAID ==
--- NOTE | 2024-04-30 02:20 | ED ---
General Adult HPI - General Chief complaint: Chest Pain Stated complaint: Cough DOLORES Time Seen by Provider: 04/30/24 02:05 Source: patient Mode of arrival: ambulatory - History of Present Illness Initial comments: Patient is a 54-year-old male with history of previous arrhythmia who presents with complaint that he has been having shortness of breath and nonproductive cough going back 3 days. He also has noted a little bit of swelling of the bilateral lower extremities. Patient also at times noting palpitations. Patient denies chest pain. No diaphoresis. No nausea or vomiting. Patient does state that he has previously had ablation for atrial flutter but was told that he may require another 1 in the future. Onset/Timin -: days(s) Severity scale (1-10): 0 Improves with: none Worsens with: none Associated Symptoms: cough, shortness of breath - Related Data Home Medications Medication Instructions Recorded Confirmed Apixaban [Eliquis] 5 mg PO BID 09/06/23 04/30/24 Empagliflozin [Jardiance] 10 mg PO DAILY 09/06/23 04/30/24 metFORMIN HCL [Glucophage] 1,000 mg PO BID 09/06/23 04/30/24 Benzonatate [Tessalon Perles] 100 mg PO TID PRN 04/30/24 04/30/24 Metoprolol Succinate (ER) [Toprol 100 mg PO BID 04/30/24 04/30/24 XL] Sacubitril/Valsartan [Entresto 24 1 tab PO BID 04/30/24 04/30/24 mg-26 mg Tablet] Tamsulosin [Flomax] 0.4 mg PO DAILY PRN 04/30/24 04/30/24 Previous Rx's Medication Instructions Recorded Amiodarone [Cordarone] See Rx Instructions .ROUTE 05/02/24 .COMPLEX #40 tab Atorvastatin [Lipitor] 40 mg PO HS #30 tab 05/02/24 Allergies Allergy/AdvReac Type Severity Reaction Status Date / Time Sulfa (Sulfonamide Allergy Anaphylaxis, Verified 04/30/24 09:37 Antibiotics) Tongue swelling Review of Systems ROS Statement: Those systems with pertinent positive or pertinent negative responses have been documented in the HPI. ROS Other: All systems not noted in ROS Statement are negative. Constitutional: Denies: fever, chills Respiratory: Reports: cough, dyspnea. Denies: wheezes, hemoptysis, stridor Cardiovascular: Reports: palpitations, edema. Denies: chest pain, orthopnea, syncope Gastrointestinal: Denies: abdominal pain, nausea, vomiting, diarrhea, melena, hematochezia Genitourinary: Denies: dysuria, hematuria Musculoskeletal: Denies: back pain Skin: Denies: rash Neurological: Denies: headache, weakness Past Medical History Past Medical History: Atrial Fibrillation, Hyperlipidemia, Hypertension Additional Past Medical History / Comment(s): Hypertension and hypertensive cardiovascular disease, hyperlipidemia, overweight, kidney stones. History of Any Multi-Drug Resistant Organisms: None Reported Past Surgical History: No Surgical Hx Reported Additional Past Surgical History / Comment(s): Sebaceous cyst removed from the back. Past Anesthesia/Blood Transfusion Reactions: No Reported Reaction Past Psychological History: No Psychological Hx Reported Smoking Status: Never smoker Past Alcohol Use History: Rare Past Drug Use History: None Reported - Past Family History Mother Family Medical History: COPD Additional Family Medical History / Comment(s): pneumothorax Father Family Medical History: Vascular Disorder Additional Family Medical History / Comment(s): aortic anuerysm Brother(s) Family Medical History: No Reported History Sister(s) Family Medical History: No Reported History Daughter(s) Family Medical History: No Reported History Son(s) Family Medical History: No Reported History General Exam General appearance: alert, in no apparent distress Head exam: Present: atraumatic, normocephalic Eye exam: Present: normal appearance. Absent: scleral icterus, conjunctival injection Neck exam: Present: normal inspection Respiratory exam: Present: normal lung sounds bilaterally. Absent: respiratory distress, wheezes, rales, rhonchi, stridor, accessory muscle use Cardiovascular Exam: Present: tachycardia. Absent: systolic murmur, diastolic murmur, rubs, gallop GI/Abdominal exam: Present: soft. Absent: distended, tenderness, guarding, rebound, rigid, mass Extremities exam: Present: normal inspection, normal capillary refill, pedal edema (Trace edema bilaterally). Absent: calf tenderness Back exam: Present: normal inspection. Absent: CVA tenderness (R), CVA tenderness (L) Neurological exam: Present: alert Skin exam: Present: warm, dry, intact, normal color. Absent: rash Course Vital Signs 04/30/24 04/30/24 04/30/24 01:50 04:01 04:25 Temperature 97.4 F L Pulse Rate 157 H 156 H 124 H Pulse Rate [ [employer]r ] Respiratory 20 18 Rate Blood Pressure 128/92 118/84 118/84 Blood Pressure [Right Arm Sitting] O2 Sat by Pulse 99 91 L 92 L Oximetry 04/30/24 04/30/24 04/30/24 05:06 05:11 06:07 Temperature Pulse Rate 152 H 142 H 154 H Pulse Rate [ [employer]r ] Respiratory 18 18 Rate Blood Pressure 123/92 123/92 108/90 Blood Pressure [Right Arm Sitting] O2 Sat by Pulse 92 L 94 L 94 L Oximetry 04/30/24 04/30/24 04/30/24 07:18 07:30 08:00 Temperature Pulse Rate 156 H 156 H 154 H Pulse Rate [ [employer]r ] Respiratory 20 Rate Blood Pressure 114/88 114/88 134/94 Blood Pressure [Right Arm Sitting] O2 Sat by Pulse 92 L 95 94 L Oximetry 04/30/24 04/30/24 04/30/24 08:30 09:00 10:00 Temperature Pulse Rate 156 H 123 H 135 H Pulse Rate [ [employer]r ] Respiratory 20 Rate Blood Pressure 120/91 120/91 100/74 Blood Pressure [Right Arm Sitting] O2 Sat by Pulse 92 L 92 L 93 L Oximetry 04/30/24 04/30/24 04/30/24 10:15 10:21 10:30 Temperature Pulse Rate 156 H 154 H Pulse Rate [ [employer]r ] Respiratory 18 Rate Blood Pressure 100/74 126/101 Blood Pressure 126/101 [Right Arm Sitting] O2 Sat by Pulse 95 96 96 Oximetry 04/30/24 04/30/24 04/30/24 10:38 10:45 11:00 Temperature Pulse Rate 149 H 149 H Pulse Rate [ 154 H [employer]r ] Respiratory 20 Rate Blood Pressure 137/101 137/101 Blood Pressure 137/101 [Right Arm Sitting] O2 Sat by Pulse 95 93 L 95 Oximetry 04/30/24 04/30/24 04/30/24 11:15 11:30 11:45 Temperature Pulse Rate 152 H 151 H 151 H Pulse Rate [ [employer]r ] Respiratory 20 Rate Blood Pressure 132/100 128/95 121/92 Blood Pressure [Right Arm Sitting] O2 Sat by Pulse 95 92 L 94 L Oximetry 04/30/24 04/30/24 04/30/24 12:00 12:15 12:30 Temperature Pulse Rate 151 H 151 H 149 H Pulse Rate [ [employer]r ] Respiratory Rate Blood Pressure 122/96 116/93 124/86 Blood Pressure [Right Arm Sitting] O2 Sat by Pulse 93 L 94 L 94 L Oximetry 04/30/24 04/30/24 04/30/24 12:45 13:00 13:15 Temperature Pulse Rate 152 H 151 H 151 H Pulse Rate [ [employer]r ] Respiratory Rate Blood Pressure 121/95 129/100 128/95 Blood Pressure [Right Arm Sitting] O2 Sat by Pulse 96 89 L 96 Oximetry 04/30/24 04/30/24 04/30/24 13:30 13:45 14:00 Temperature Pulse Rate 151 H 151 H 151 H Pulse Rate [ [employer] Wheel [employer]r ] Respiratory Rate Blood Pressure 114/90 123/97 120/94 Blood Pressure [Right Arm Sitting] O2 Sat by Pulse 95 95 97 Oximetry 04/30/24 04/30/24 04/30/24 14:15 14:30 14:45 Temperature Pulse Rate 147 H 149 H 149 H Pulse Rate [ [employer]r ] Respiratory Rate Blood Pressure 122/93 116/86 133/95 Blood Pressure [Right Arm Sitting] O2 Sat by Pulse 93 L 96 97 Oximetry 04/30/24 04/30/24 04/30/24 15:00 15:15 15:30 Temperature Pulse Rate 147 H 149 H Pulse Rate [ [employer]r ] Respiratory 18 Rate Blood Pressure 120/93 119/97 119/97 Blood Pressure [Right Arm Sitting] O2 Sat by Pulse 89 L 96 96 Oximetry 04/30/24 04/30/24 04/30/24 16:00 16:15 16:30 Temperature Pulse Rate 149 H 149 H 151 H Pulse Rate [ [employer]r ] Respiratory 18 18 18 Rate Blood Pressure 126/95 131/97 128/97 Blood Pressure [Right Arm Sitting] O2 Sat by Pulse 96 96 96 Oximetry 04/30/24 04/30/24 04/30/24 16:45 17:00 17:15 Temperature Pulse Rate 151 H 152 H 152 H Pulse Rate [ [employer]r ] Respiratory 18 19 18 Rate Blood Pressure 128/97 130/102 132/101 Blood Pressure [Right Arm Sitting] O2 Sat by Pulse 97 97 97 Oximetry 04/30/24 04/30/24 04/30/24 17:30 17:45 18:00 Temperature Pulse Rate 151 H 151 H 154 H Pulse Rate [ [employer]r ] Respiratory 18 18 20 Rate Blood Pressure 134/103 133/100 136/105 Blood Pressure [Right Arm Sitting] O2 Sat by Pulse 98 98 100 Oximetry 04/30/24 04/30/24 04/30/24 18:05 18:12 18:15 Temperature Pulse Rate 76 74 Pulse Rate [ 73 [employer]ishing Wheel [employer]r ] Respiratory 18 17 17 Rate Blood Pressure 131/82 117/83 Blood Pressure 117/83 [Right Arm Sitting] O2 Sat by Pulse 98 96 94 L Oximetry 04/30/24 04/30/24 04/30/24 18:30 18:35 18:45 Temperature Pulse Rate 71 75 75 Pulse Rate [ [employer]r ] Respiratory 17 18 18 Rate Blood Pressure 116/80 122/74 122/79 Blood Pressure [Right Arm Sitting] O2 Sat by Pulse 95 97 97 Oximetry 04/30/24 04/30/24 04/30/24 19:00 19:15 19:30 Temperature Pulse Rate 74 73 74 Pulse Rate [ [employer]r ] Respiratory 18 18 18 Rate Blood Pressure 118/89 120/84 124/84 Blood Pressure [Right Arm Sitting] O2 Sat by Pulse 96 97 94 L Oximetry 04/30/24 04/30/24 04/30/24 19:45 20:00 20:15 Temperature Pulse Rate 75 73 76 Pulse Rate [ [employer]r ] Respiratory 18 17 18 Rate Blood Pressure 123/86 123/88 117/88 Blood Pressure [Right Arm Sitting] O2 Sat by Pulse 98 95 95 Oximetry 04/30/24 04/30/24 04/30/24 20:30 20:45 21:00 Temperature Pulse Rate 75 79 79 Pulse Rate [ [employer]r ] Respiratory 18 18 18 Rate Blood Pressure 122/88 128/93 128/92 Blood Pressure [Right Arm Sitting] O2 Sat by Pulse 98 97 96 Oximetry 04/30/24 04/30/24 04/30/24 21:15 21:30 21:45 Temperature Pulse Rate 80 78 79 Pulse Rate [ [employer]r ] Respiratory 17 18 16 Rate Blood Pressure 133/94 128/108 126/91 Blood Pressure [Right Arm Sitting] O2 Sat by Pulse 97 95 95 Oximetry 04/30/24 04/30/24 04/30/24 22:00 22:15 22:30 Temperature Pulse Rate 75 78 77 Pulse Rate [ [employer] Wheel Repairer ] Respiratory 16 16 17 Rate Blood Pressure 132/93 119/90 128/96 Blood Pressure [Right Arm Sitting] O2 Sat by Pulse 96 95 96 Oximetry 04/30/24 04/30/24 04/30/24 22:45 23:00 23:15 Temperature Pulse Rate 80 78 79 Pulse Rate [ [employer] Wheel Rep[employer]r ] Respiratory 18 18 18 Rate Blood Pressure 126/89 114/84 122/94 Blood Pressure [Right Arm Sitting] O2 Sat by Pulse 96 96 95 Oximetry 04/30/24 04/30/24 05/01/24 23:30 23:45 00:15 Temperature Pulse Rate 79 78 79 Pulse Rate [ [employer]r ] Respiratory 17 17 17 Rate Blood Pressure 133/89 118/84 125/80 Blood Pressure [Right Arm Sitting] O2 Sat by Pulse 96 96 96 Oximetry 05/01/24 05/01/24 05/01/24 00:30 00:45 01:00 Temperature Pulse Rate 77 75 75 Pulse Rate [ [employer] Wheel Repairer ] Respiratory 17 17 18 Rate Blood Pressure 128/77 131/94 123/77 Blood Pressure [Right Arm Sitting] O2 Sat by Pulse 95 91 L 91 L Oximetry 05/01/24 05/01/24 05/01/24 01:15 01:30 01:45 Temperature Pulse Rate 77 74 73 Pulse Rate [ [employer] Wheel [employer]r ] Respiratory 17 17 16 Rate Blood Pressure 119/86 127/84 113/72 Blood Pressure [Right Arm Sitting] O2 Sat by Pulse 95 91 L 92 L Oximetry 05/01/24 05/01/24 05/01/24 02:00 02:15 02:30 Temperature Pulse Rate 74 74 74 Pulse Rate [ [employer] Wheel Rep[employer]r ] Respiratory 17 16 16 Rate Blood Pressure 110/69 116/85 120/81 Blood Pressure [Right Arm Sitting] O2 Sat by Pulse 93 L 94 L 94 L Oximetry 05/01/24 05/01/24 05/01/24 03:00 04:00 05:00 Temperature Pulse Rate 74 77 75 Pulse Rate [ [employer]ishing Wheel Repairer ] Respiratory 19 Rate Blood Pressure 121/85 122/88 127/80 Blood Pressure [Right Arm Sitting] O2 Sat by Pulse 97 98 96 Oximetry 05/01/24 05/01/24 05/01/24 06:00 08:15 09:40 Temperature 98.1 F 98 F Pulse Rate 76 84 Pulse Rate [ 79 [employer]ishing Wheel Repairer ] Respiratory 16 16 16 Rate Blood Pressure 122/83 116/63 Blood Pressure 127/82 [Right Arm Sitting] O2 Sat by Pulse 97 94 L 96 Oximetry EKG Findings - EKG Comments: EKG Findings:: The underlying rhythm appears to be atrial flutter with 2-1 conduction - EKG Results: EKG: interpreted by ERMD, normal axis EKG shows: tachycardia (156 bpm) Medical Decision Making - Medical Decision Making The patient had chest x-ray that I interpreted as negative for acute infiltrate, pneumothorax, congestive heart failure Was pt. sent in by a medical professional or institution (, PA, LIVESTOCK HANDLER, urgent care, hospital, or longterm...) When possible be specific @ -[No] Did you speak to anyone other than the patient for history (EMS, parent, family, police, friend...)? What history was obtained from this source @ -[No] Did you review nursing and triage notes (agree or disagree)? Why? @ -[I reviewed and agree with nursing and triage notes] Were old charts reviewed (outside hosp., previous admission, EMS record, old EKG, old radiological studies, urgent care reports/EKG's, longterm records)? Report findings @ -[Yes, old charts were reviewed] Differential Diagnosis (chest pain, altered mental status, abdominal pain women, abdominal pain men, vaginal bleeding, weakness, fever, dyspnea, syncope, headache, dizziness, GI bleed, back pain, seizure, CVA, palpatations, mental health, musculoskeletal)? @ -[Differential Dyspnea: Coronary syndrome, arrhythmia, tamponade, asthma, COPD, pulmonary embolism, pneumonia, pneumothorax, pulmonary effusion, anaphylaxis, diabetic ketoacidosis, flailed chest, pulmonary contusion, diaphragmatic rupture, anemia, neuromuscular, this is not meant to be an all-inclusive list. EKG interpreted by me (3pts min.). @ -[I interpreted as above] X-rays interpreted by me (1pt min.). @ -[I interpreted as above CT interpreted by me (1pt min.). @ -[None done] U/S interpreted by me (1pt. min.). @ -[None done] What testing was considered but not performed or refused? (CT, X-rays, U/S, labs)? Why? @ -[None] What meds were considered but not given or refused? Why? @ -[None] Did you discuss the management of the patient with other professionals (professionals i.e. Dr., PA, LIVESTOCK HANDLER, lab, RT, psych nurse, nephrology social worker, patient placement coordinator, teacher, juvenile detention officer, case assembler)? Give summary @ -[Case discussed with admitting physician and treatment recommendations incorporated Was smoking cessation discussed for >3mins.? @ -[No] Was critical care preformed (if so, how long)? @ -[Yes, 35 minutes Were there social determinants of health that impacted care today? How? (Homelessness, low income, unemployed, alcoholism, drug addiction, transportation, low edu. Level, literacy, decrease access to med. care, skilled nursing, rehab)? @ -[No] Was there de-escalation of care discussed even if they declined (Discuss DNR or withdrawal of care, Hospice)? DNR status @ -[No] What co-morbidities impacted this encounter? (DM, HTN, Smoking, COPD, CAD, Cancer, CVA, ARF, Chemo, Hep., AIDS, mental health diagnosis, sleep apnea, morbid obesity)? @ -[None] Was patient admitted / discharged? Hospital course, mention meds given and route, prescriptions, significant lab abnormalities, going to OR and other pertinent info. @ -[This patient is 54-year-old man who is found to be in atrial flutter with rapid ventricular rate. The patient is started on Cardizem and will be admitted to have cardiology consultation. Undiagnosed new problem with uncertain prognosis? @ -[No] Drug Therapy requiring intensive monitoring for toxicity (Heparin, Nitro, Insulin, Cardizem)? @ -[IV Cardizem Were any procedures done? @ -[No] Diagnosis/symptom? @ -[Atrial flutter with rapid ventricular rate Elevated troponin I Acute, or Chronic, or Acute on Chronic? @ -[Acute Uncomplicated (without systemic symptoms) or Complicated (systemic symptoms)? @ -[Complicated by dyspnea Side effects of treatment? @ -[No] Exacerbation, Progression, or Severe Exacerbation? @ -[No] Poses a threat to life or bodily function? How? (Chest pain, [place], [place], pneumonia, PE, COPD, DKA, ARF, appy, cholecystitis, CVA, Diverticulitis, Homicidal, Suicid al, threat to staff... and all critical care pts) @ -[Yes - Lab Data Result diagrams: 11/12/24 06:15 05/02/24 06:15 Lab Results 04/30/24 04/30/24 04/30/24 Range/Units 02:28 02:28 02:28 WBC 16.7 H (3.8-10.6) k/uL RBC 5.03 (4.30-5.90) m/uL Hgb 15.0 (13.0-17.5) gm/dL Hct 46.7 (39.0-53.0) % MCV 92.9 (80.0-100.0) fL MCH 29.8 (25.0-35.0) pg MCHC 32.1 (31.0-37.0) g/dL RDW 14.1 (11.5-15.5) % Plt Count 330 (150-450) k/uL MPV 8.4 Neutrophils % 81 % Lymphocytes % 13 % Monocytes % 4 % Eosinophils % 1 % Basophils % 0 % Neutrophils # 13.6 H (1.3-7.7) k/uL Lymphocytes # 2.2 (1.0-4.8) k/uL Monocytes # 0.7 (0-1.0) k/uL Eosinophils # 0.1 (0-0.7) k/uL Basophils # 0.0 (0-0.2) k/uL Hypochromasia Slight PT 13.1 H (10.0-12.5) sec INR 1.2 H (<1.2) APTT 28.1 (22.0-30.0) sec D-Dimer 0.48 (<0.60) mg/L FEU Sodium 139 (137-145) mmol/L Potassium 4.9 (3.5-5.1) mmol/L Chloride 114 H (98-107) mmol/L Carbon Dioxide 12 L (22-30) mmol/L Anion Gap 13 mmol/L BUN 36 H (9-20) mg/dL Creatinine 1.73 H (0.66-1.25) mg/dL Est GFR (CKD-EPI)AfAm 51 (>60 ml/min/1.73 sqM) Est GFR (CKD-EPI)NonAf 44 (>60 ml/min/1.73 sqM) Glucose 172 H (74-99) mg/dL Lactic Ac Sepsis Rflx Plasma Lactic Acid Tenzin (0.7-2.0) mmol/L Calcium 9.3 (8.4-10.2) mg/dL Total Bilirubin 0.6 (0.2-1.3) mg/dL AST 18 (17-59) U/L ALT 19 (4-49) U/L Alkaline Phosphatase 76 (38-126) U/L Troponin I (0.000-0.034) ng/mL NT-Pro-B Natriuret Pep 9960 pg/mL Total Protein 7.4 (6.3-8.2) g/dL Albumin 4.2 (3.5-5.0) g/dL 04/30/24 04/30/24 04/30/24 Range/Units 02:28 02:28 03:02 WBC (3.8-10.6) k/uL RBC (4.30-5.90) m/uL Hgb (13.0-17.5) gm/dL Hct (39.0-53.0) % MCV (80.0-100.0) fL MCH (25.0-35.0) pg MCHC (31.0-37.0) g/dL RDW (11.5-15.5) % Plt Count (150-450) k/uL MPV Neutrophils % % Lymphocytes % % Monocytes % % Eosinophils % % Basophils % % Neutrophils # (1.3-7.7) k/uL Lymphocytes # (1.0-4.8) k/uL Monocytes # (0-1.0) k/uL Eosinophils # (0-0.7) k/uL Basophils # (0-0.2) k/uL Hypochromasia PT (10.0-12.5) sec INR (<1.2) APTT (22.0-30.0) sec D-Dimer (<0.60) mg/L FEU Sodium (137-145) mmol/L Potassium (3.5-5.1) mmol/L Chloride (98-107) mmol/L Carbon Dioxide (22-30) mmol/L Anion Gap mmol/L BUN (9-20) mg/dL Creatinine (0.66-1.25) mg/dL Est GFR (CKD-EPI)AfAm (>60 ml/min/1.73 sqM) Est GFR (CKD-EPI)NonAf (>60 ml/min/1.73 sqM) Glucose (74-99) mg/dL Lactic Ac Sepsis Rflx Y Plasma Lactic Acid Tenzin 4.1 H* (0.7-2.0) mmol/L Calcium (8.4-10.2) mg/dL Total Bilirubin (0.2-1.3) mg/dL AST (17-59) U/L ALT (4-49) U/L Alkaline Phosphatase (38-126) U/L Troponin I 0.049 H* (0.000-0.034) ng/mL NT-Pro-B Natriuret Pep pg/mL Total Protein (6.3-8.2) g/dL Albumin (3.5-5.0) g/dL Disposition Clinical Impression: Atrial flutter with rapid ventricular response Disposition: ADMITTED IP TO THIS HOSP Condition: Fair Is patient prescribed a controlled substance at d/c from ED?: No
[2024-04-30 02:36] LABS: Basophils % (A) 0 %; Eosinophils # (A) 0.1 k/uL (0-0.7); Eosinophils % (A) 1 %; HCT 46.7 % (39.0-53.0); Hypochromasia Slight; Lymphocytes # (A) 2.2 k/uL (1.0-4.8); Lymphocytes % (A) 13 %; MCH 29.8 pg (25.0-35.0); MCHC 32.1 g/dL (31.0-37.0); MCV 92.9 fL (80.0-100.0); Mean Platelet Volume 8.4; Monocytes # (A) 0.7 k/uL (0-1.0); Monocytes % (A) 4 %; Neutrophils # (A) 13.6 k/uL (1.3-7.7); Neutrophils % (A) 81 %; Platelet Count 330 k/uL (150-450); RBC 5.03 m/uL (4.30-5.90); RDW 14.1 % (11.5-15.5); WBC 16.7 k/uL (3.8-10.6)
[2024-04-30] MEDS: DILTIAZEM 125 MG in SODIUM CHLORIDE 0.9% 100 ML IV SCH (02:43)
[2024-04-30] MEDS: DILTIAZEM DRIP BOLUS FROM BAG 1 MG SOLN IV ONE ×2 (02:43→04:09)
[2024-04-30 02:46] LABS: ALT 19 U/L (4-49); AST 18 U/L (17-59); African American GFR (CKD) 51 (>60 ml/min/1.73 sqM); Albumin 4.2 g/dL (3.5-5.0); Alkaline Phosphatase 76 U/L (38-126); Anion Gap 13 mmol/L; Blood Urea Nitrogen 36 mg/dL (9-20); Calcium 9.3 mg/dL (8.4-10.2); Carbon Dioxide 12 mmol/L (22-30); Chloride 114 mmol/L (98-107); Glucose 172 mg/dL (74-99); Non-African American GFR(CKD) 44 (>60 ml/min/1.73 sqM); Potassium 4.9 mmol/L (3.5-5.1); Sodium 139 mmol/L (137-145); Total Bilirubin 0.6 mg/dL (0.2-1.3); Total Protein 7.4 g/dL (6.3-8.2)
[2024-04-30 02:53] LABS: INR 1.2 (<1.2); Partial Thromboplastin Time 28.1 sec (22.0-30.0); Prothrombin Time 13.1 sec (10.0-12.5)
[2024-04-30 02:55] LABS: NT-Pro-B-Type Natriuretic Pept 9960 pg/mL
--- NOTE | 2024-04-30 03:08 | XR ---
EXAM: XR Chest, 2 Views CLINICAL HISTORY: ITS.REASON XR Reason: difficulty breathing TECHNIQUE: Frontal and lateral views of the chest. COMPARISON: No relevant prior studies available. IMPRESSION: Cardiomegaly. Minimal vascular congestion
[2024-04-30] MEDS ORDERED: NITROGLYCERIN SL TABS 0.4 MG TAB SUBLINGUAL PRN (04:10)
[2024-04-30] MEDS ORDERED: DEXTROSE 50% SYRINGE 50 ML IVP PRN ×2 (08:55)
[2024-04-30] MEDS ORDERED: NON FORMULARY DRUG (Tadalafil [Tadalafil] 10 MG Tablet) PO PRN (09:00)
[2024-04-30] MEDS ORDERED: metFORMIN 500 MG TAB PO SCH (09:00)
[2024-04-30] MEDS: METOPROLOL SUCCINATE (ER) 50 MG TAB.ER.24H PO SCH (10:13)
[2024-04-30] MEDS: SACUBITRIL/VALSARTAN 24 MG-26 MG TABLET PO SCH (10:13)
[2024-04-30] MEDS: DAPAGLIFLOZIN PROPANEDIOL 5 MG TABLET PO SCH (10:14)
--- NOTE | 2024-04-30 10:16 | P.CRDCN ---
History of Present Illness Consult date: 04/30/24 History of present illness: HISTORY OF PRESENTING ILLNESS 54-year-old male with past medical history of tachycardia induced cardiomyopathy with a EF of 25 to 30%, recent atrial flutter ablation with Dr. Cameron in December 2023. He presented to the hospital because of increased worsening shortness of breath and difficulty breathing. On admission he was noticed to be in atrial flutter with RVR with heart rate in 150s. On admission he had evidence of elevated troponin, elevated lactate. He denies any cough, burning in the urine, abdominal pain, or any fever or chills. He denies any substernal chest pressure. REVIEW OF SYSTEMS 14 point review of system is negative except what is mentioned above in HPI. PHYSICAL EXAMINATION Neck: Brisk carotid upstroke, elevated jugular venous distention. Lungs: Crackles audible in bilateral lung zambrano Heart: Irregularly irregular pulse, no murmurs appreciated Abdomen: Soft nontender, positive bowel sounds. Extremities: 1+ pitting edema Neuro: Alert, oritented, no focal deficits. Detailed neuro exam was not performed. ASSESSMENT Atrial flutter with RVR, symptomatic with shortness of breath. Relapsed after recent atrial flutter ablation. Recent atrial flutter ablation December [address] Cameron. Mild HFrEF exacerbation Tachycardia induced cardiomyopathy with a EF of 25 to 30% Elevated lactate Type II NSTEMI due to demand supply mismatch MARK CKD Type 2 diabetes Hypertension Dyslipidemia PLAN Hold Entresto and Jardiance. Give Lasix 40 mg IV Increase metoprolol to 100 mg twice daily Start amiodarone drip. Discontinue Cardizem due to low EF Continue Eliquis 5 mg twice daily. He is on aspirin 81 mg. Will continue for now. Add lipitor 40mg Monitor renal function and electrolytes. Once decongested, and if kidney function stays stable, consider resuming Ent brando and Farxiga. Would request primary team to evaluate for any signs of sepsis. Consider obtaining a blood culture If patient has not had any ischemic evaluation on outpatient basis, consider doing a heart catheterization. Request records from clinic on Wednesday. If no recent echocardiogram, consider repeating a limited echo Once rate control is achieved, consider outpatient follow-up with Dr. Cameron for ablation. If not able to achieve rate control in next 24 to 48 hours, consider KAYCEE cardioversion Nick Vick MD, [facility], [facility] Thank you for allowing [facility] to participate in this patient's care. Feel free to reach out in case of any followup questions. Past Medical History Past Medical History: Atrial Fibrillation, Hyperlipidemia, Hypertension Additional Past Medical History / Comment(s): Hypertension and hypertensive cardiovascular disease, hyperlipidemia, overweight, kidney stones. History of Any Multi-Drug Resistant Organisms: None Reported Past Surgical History: No Surgical Hx Reported Additional Past Surgical History / Comment(s): Sebaceous cyst removed from the back. Past Anesthesia/Blood Transfusion Reactions: No Reported Reaction Past Psychological History: No Psychological Hx Reported Smoking Status: Never smoker Past Alcohol Use History: Rare Past Drug Use History: None Reported - Past Family History Mother Family Medical History: COPD Additional Family Medical History / Comment(s): pneumothorax Father Family Medical History: Vascular Disorder Additional Family Medical History / Comment(s): aortic anuerysm Brother(s) Family Medical History: No Reported History Sister(s) Family Medical History: No Reported History Daughter(s) Family Medical History: No Reported History Son(s) Family Medical History: No Reported History Medications and Allergies Home Medications Medication Instructions Recorded Confirmed Type Apixaban [Eliquis] 5 mg PO BID 09/06/23 04/30/24 History Empagliflozin [Jardiance] 10 mg PO DAILY 09/06/23 04/30/24 History metFORMIN HCL [Glucophage] 1,000 mg PO BID 09/06/23 04/30/24 History Benzonatate [Tessalon Perles] 100 mg PO TID PRN 04/30/24 04/30/24 History Metoprolol Succinate (ER) [Toprol 100 mg PO BID 04/30/24 04/30/24 History Xl] Sacubitril/Valsartan [Entresto 24 1 tab PO BID 04/30/24 04/30/24 History mg-26 mg Tablet] Tamsulosin [Flomax] 0.4 mg PO DAILY PRN 04/30/24 04/30/24 History Allergies Allergy/AdvReac Type Severity Reaction Status Date / Time Sulfa (Sulfonamide Allergy Anaphylaxis, Verified 04/30/24 09:37 Antibiotics) Tongue swelling Physical Exam Vitals: Vital Signs Temp Pulse Resp BP Pulse Ox 04/30/24 10:00 135 H 20 100/74 93 L 04/30/24 09:00 123 H 120/91 92 L 04/30/24 08:30 156 H 120/91 92 L 04/30/24 08:00 154 H 134/94 94 L 04/30/24 07:30 156 H 114/88 95 04/30/24 07:18 156 H 20 114/88 92 L 04/30/24 06:07 154 H 18 108/90 94 L 04/30/24 05:11 142 H 18 123/92 94 L 04/30/24 05:06 152 H 123/92 92 L 04/30/24 04:25 124 H 118/84 92 L 04/30/24 04:01 156 H 18 118/84 91 L 04/30/24 01:50 97.4 F L 157 H 20 128/92 99 Intake and Output 04/29/24 04/30/24 04/30/24 22:59 06:59 14:59 Intake Total 37.167 Balance 37.167 Intake: Intake, IV Titration 37.167 Amount Diltiazem 125 mg In 37.167 Sodium Chloride 0.9% 100 ml @ 5 MG/HR 5 mls/hr IV .Q24H [facility] Rx#:[id number] Other: Weight 97.976 kg Results 04/30/24 02:28 04/30/24 02:28 Cardiac Enzymes 04/30/24 04/30/24 04/30/24 Range/Units 02:28 02:28 05:46 AST 18 (17-59) U/L Troponin I 0.049 H* 0.053 H* (0.000-0.034) ng/mL Coagulation 04/30/24 Range/Units 02:28 PT 13.1 H (10.0-12.5) sec APTT 28.1 (22.0-30.0) sec CBC 04/30/24 Range/Units 02:28 WBC 16.7 H (3.8-10.6) k/uL RBC 5.03 (4.30-5.90) m/uL Hgb 15.0 (13.0-17.5) gm/dL Hct 46.7 (39.0-53.0) % Plt Count 330 (150-450) k/uL Comprehensive Metabolic Panel 04/30/24 Range/Units 02:28 Sodium 139 (137-145) mmol/L Potassium 4.9 (3.5-5.1) mmol/L Chloride 114 H (98-107) mmol/L Carbon Dioxide 12 L (22-30) mmol/L BUN 36 H (9-20) mg/dL Creatinine 1.73 H (0.66-1.25) mg/dL Glucose 172 H (74-99) mg/dL Calcium 9.3 (8.4-10.2) mg/dL AST 18 (17-59) U/L ALT 19 (4-49) U/L Alkaline Phosphatase 76 (38-126) U/L Total Protein 7.4 (6.3-8.2) g/dL Albumin 4.2 (3.5-5.0) g/dL Current Medications Generic Name Dose Route Start Last Admin Trade Name Freq PRN Reason Stop Dose Admin Apixaban 5 mg 04/30/24 09:00 Apixaban 5 Mg Tab PO BID [facility] Protocol Aspirin 81 mg 05/01/24 09:00 Aspirin 81 Mg PO DAILY [facility] Dextrose/Water 25 ml 04/30/24 08:55 Dextrose 50% Syringe 50 Ml IVP PER PROTOCOL PRN Hypoglycemia Protocol Dextrose/Water 50 ml 04/30/24 08:55 Dextrose 50% Syringe 50 Ml IVP PER PROTOCOL PRN Hypoglycemia Protocol Amiodarone HCl 150 mg/ 103 mls @ 618 mls/hr 04/30/24 10:08 Dextrose/Water IV 04/30/24 10:17 .Q10M ONE Amiodarone HCl 360 mg/ 200 mls @ 33.333 mls/hr 04/30/24 10:08 Dextrose/Water IV 04/30/24 16:07 .Q6H ONE Protocol 1 MG/MIN Amiodarone HCl 450 mg/ 250 mls @ 16.667 mls/hr 04/30/24 16:15 Dextrose/Water IV 05/01/24 10:14 .Q15H [facility] Protocol 0.5 MG/MIN Insulin Aspart 0 unit 04/30/24 12:30 Insulin Aspart (Novolog) 100 Unit/Ml Vial SQ ACHS [facility] Protocol Metoprolol Succinate 100 mg 04/30/24 10:12 Metoprolol Succinate (Er) 100 Mg Tab.Er.24h PO BID [facility] Nitroglycerin 0.4 mg 04/30/24 04:10 Nitroglycerin Sl Tabs 0.4 Mg Tab SUBLINGUAL Q5M PRN Chest Pain Non-Formulary Medication 0.5 mg 05/05/24 09:00 Semaglutide [Ozempic] SQ FR [facility] Intake and Output 04/29/24 04/30/24 04/30/24 22:59 06:59 14:59 Intake Total 37.167 Balance 37.167 Intake: Intake, IV Titration 37.167 Amount Diltiazem 125 mg In 37.167 Sodium Chloride 0.9% 100 ml @ 5 MG/HR 5 mls/hr IV .Q24H [facility] Rx#:[id number] Other: Weight 97.976 kg 04/30/24 02:28 04/30/24 02:28
[2024-04-30] MEDS: APIXABAN 5 MG TAB PO SCH (10:19)
[2024-04-30] MEDS: METOPROLOL SUCCINATE (ER) 100 MG TAB.ER.24H PO SCH (10:19)
[2024-04-30] MEDS: FUROSEMIDE 10 MG/ML 4 ML VIAL IV STA (10:20)
[2024-04-30] MEDS: DEXTROSE 5% IN WATER 100 ML with AMIODARONE 150 MG IV ONE (10:37)
[2024-04-30] MEDS: AMIODARONE 360 MG in DEXTROSE 5% IN WATER 200 ML IV ONE (10:47)
[2024-04-30] MEDS: INSULIN ASPART (NovoLOG) 100 UNIT/ML VIAL SQ SCH (12:00)
--- NOTE | 2024-04-30 14:55 | P.HPIM ---
History of Present Illness H&P Date: 04/30/24 History of present illness: This is a 54-year-old male patient with past medical history significant for atrial fibrillation status post ablation, hypertension, hyperlipidemia, history of systolic CHF with EF 25 to 30%, diabetes mellitus, CKD who presented to ER with a complaint of increasing shortness of breath, difficulty laying flat, lower extremity swelling, weight gain. Patient stated that symptoms started for the last week or so. Patient denied any fever or chills. Patient reported cough with clear sputum production, worse in the morning. Patient also reported frequent wakening in the middle of the night with cough. Patient was noted to be in atrial flutter with RVR with heart rate in the 150s on admission, also had elevated troponin and elevated lactate. Patient denied headache, vision change, chest pain, palpitations, nausea vomiting diarrhea constipation abdominal pain dysuria urgency frequency weakness or numbness of the extremities. Chest x-ray showed cardiomegaly, vascular congestion. EKG showed atrial flutter with RVR, heart rate 151, respiratory rate 20, blood pressure 122/96, saturating 93% on room air. WBC 16.7, hemoglobin 15.0, platelet 330. INR 1.2. Sodium 139 potassium 4.9 CO2 12 BUN 36 creatinine 1.73, lactate 4.1 came down to 2.0. Troponin 0.049, 0.053, 0.056. Assessment: Atrial flutter with RVR: Status post recent ablation in December 2023: Acute systolic CHF: Elevated troponin: Demand ischemia MARK on CKD: Elevated lactate Diabetes mellitus Hypertension Hyperlipidemia Plan: Presented with shortness of breath, lower extremity edema, orthopnea, PND Noted to be in atrial flutter with RVR in the ED. Continue Eliquis Aspirin, statin Hold Entresto and Jardiance Continue IV diuresis with Lasix Amiodarone drip. Increase metoprolol to 100 mg twice daily per cardiology Cardiology consulted and following. No suspicion of sepsis, blood cultures ordered. Elevated lactate likely secondary to low tissue perfusion DVT prophylaxis Coagulated. Monitor vital signs and labs Labs and medication were reviewed. Continue same treatment. Further recommendations as per clinical course of the patient REVIEW OF SYSTEMS: CONSTITUTIONAL: No fever, no malaise, no fatigue. HEENT: No recent visual problems or hearing problems. Denied any sore throat. CARDIOVASCULAR: Complains of lower extremity swelling, orthopnea, PND. PULMONARY: Shortness of breath, productive cough. GASTROINTESTINAL: No diarrhea, no nausea, no vomiting, no abdominal pain. NEUROLOGICAL: No headaches, no weakness, no numbness. HEMATOLOGICAL: Denies any bleeding or petechiae. GENITOURINARY: Denies any burning micturition, frequency, or urgency. MUSCULOSKELETAL/RHEUMATOLOGICAL: Denies any joint pain, swelling, or any muscle pain. ENDOCRINE: Denies any polyuria or polydipsia. The rest of the 14-point review of systems is negative. PHYSICAL EXAMINATION: GENERAL: The patient is A&O x3, NAD HEENT: EOMI, Sclerae anicteric, Moist Mucous membranes Neck: Supple, Non tender, No JVD PULMONARY: Equal breath souds B/L, No wheezing, No crackles. CARDIOVASCULAR: S1, S2 present. No murmurs, rubs, or gallops. ABDOMEN: Soft, nontender, nondistended, normoactive bowel sounds. No guarding or rebound tenderness. MUSCULOSKELETAL: + edema, No cyanosis. No clubbing. Normal ROM. Intact peripheral pulses. EXTREMITIES: No cyanosis, clubbing, or pedal edema. NEUROLOGICAL: CN 2-12 grossly intact. No FND Dictation was produced using [employer] dictation software. please excuse any grammatical, word or spelling errors. Past Medical History Past Medical History: Atrial Fibrillation, Hyperlipidemia, Hypertension Additional Past Medical History / Comment(s): Hypertension and hypertensive car diovascular disease, hyperlipidemia, overweight, kidney stones. History of Any Multi-Drug Resistant Organisms: None Reported Past Surgical History: No Surgical Hx Reported Additional Past Surgical History / Comment(s): Sebaceous cyst removed from the back. Past Anesthesia/Blood Transfusion Reactions: No Reported Reaction Past Psychological History: No Psychological Hx Reported Smoking Status: Never smoker Past Alcohol Use History: Rare Past Drug Use History: None Reported - Past Family History Mother Family Medical History: COPD Additional Family Medical History / Comment(s): pneumothorax Father Family Medical History: Vascular Disorder Additional Family Medical History / Comment(s): aortic anuerysm Brother(s) Family Medical History: No Reported History Sister(s) Family Medical History: No Reported History Daughter(s) Family Medical History: No Reported History Son(s) Family Medical History: No Reported History Medications and Allergies Home Medications Medication Instructions Recorded Confirmed Type Apixaban [Eliquis] 5 mg PO BID 09/06/23 04/30/24 History Empagliflozin [Jardiance] 10 mg PO DAILY 09/06/23 04/30/24 History metFORMIN HCL [Glucophage] 1,000 mg PO BID 09/06/23 04/30/24 History Benzonatate [Tessalon Perles] 100 mg PO TID PRN 04/30/24 04/30/24 History Metoprolol Succinate (ER) [Toprol 100 mg PO BID 04/30/24 04/30/24 History Xl] Sacubitril/Valsartan [Entresto 24 1 tab PO BID 04/30/24 04/30/24 History mg-26 mg Tablet] Tamsulosin [Flomax] 0.4 mg PO DAILY PRN 04/30/24 04/30/24 History Allergies Allergy/AdvReac Type Severity Reaction Status Date / Time Sulfa (Sulfonamide Allergy Anaphylaxis, Verified 04/30/24 09:37 Antibiotics) Tongue swelling Physical Exam Vitals: Vital Signs Temp Pulse Pulse Resp BP BP Pulse Ox 04/30/24 12:00 151 H 122/96 93 L 04/30/24 11:45 151 H 121/92 94 L 04/30/24 11:30 151 H 20 128/95 92 L 04/30/24 11:15 152 H 132/100 95 04/30/24 11:00 149 H 137/101 95 04/30/24 10:45 149 H 137/101 93 L 04/30/24 10:38 154 H 20 137/101 95 04/30/24 10:30 154 H 126/101 96 04/30/24 10:21 18 126/101 96 04/30/24 10:15 156 H 100/74 95 04/30/24 10:00 135 H 20 100/74 93 L 04/30/24 09:00 123 H 120/91 92 L 04/30/24 08:30 156 H 120/91 92 L 04/30/24 08:00 154 H 134/94 94 L 04/30/24 07:30 156 H 114/88 95 04/30/24 07:18 156 H 20 114/88 92 L 04/30/24 06:07 154 H 18 108/90 94 L 04/30/24 05:11 142 H 18 123/92 94 L 04/30/24 05:06 152 H 123/92 92 L 04/30/24 04:25 124 H 118/84 92 L 04/30/24 04:01 156 H 18 118/84 91 L 04/30/24 01:50 97.4 F L 157 H 20 128/92 99 Intake and Output 04/29/24 04/30/24 04/30/24 22:59 06:59 14:59 Intake Total 37.167 Balance 37.167 Intake: Intake, IV Titration 37.167 Amount Diltiazem 125 mg In 37.167 Sodium Chloride 0.9% 100 ml @ 5 MG/HR 5 mls/hr IV .Q24H [facility] Rx#:[id number] Other: Weight 97.976 kg Results CBC & Chem 7: 04/30/24 02:28 04/30/24 02:28 Labs: Abnormal Lab Results - Last 24 Hours (Table) 04/30/24 04/30/24 04/30/24 Range/Units 02:28 02:28 02:28 WBC 16.7 H (3.8-10.6) k/uL Neutrophils # 13.6 H (1.3-7.7) k/uL PT 13.1 H (10.0-12.5) sec INR 1.2 H (<1.2) Chloride 114 H (98-107) mmol/L Carbon Dioxide 12 L (22-30) mmol/L BUN 36 H (9-20) mg/dL Creatinine 1.73 H (0.66-1.25) mg/dL Glucose 172 H (74-99) mg/dL Plasma Lactic Acid Tenzin (0.7-2.0) mmol/L Troponin I (0.000-0.034) ng/mL 04/30/24 04/30/24 04/30/24 Range/Units 02:28 02:28 05:46 WBC (3.8-10.6) k/uL Neutrophils # (1.3-7.7) k/uL PT (10.0-12.5) sec INR (<1.2) Chloride (98-107) mmol/L Carbon Dioxide (22-30) mmol/L BUN (9-20) mg/dL Creatinine (0.66-1.25) mg/dL Glucose (74-99) mg/dL Plasma Lactic Acid Tenzin 4.1 H* (0.7-2.0) mmol/L Troponin I 0.049 H* 0.053 H* (0.000-0.034) ng/mL 04/30/24 04/30/24 Range/Units 05:46 11:15 WBC (3.8-10.6) k/uL Neutrophils # (1.3-7.7) k/uL PT (10.0-12.5) sec INR (<1.2) Chloride (98-107) mmol/L Carbon Dioxide (22-30) mmol/L BUN (9-20) mg/dL Creatinine (0.66-1.25) mg/dL Glucose (74-99) mg/dL Plasma Lactic Acid Tenzin 3.2 H* (0.7-2.0) mmol/L Troponin I 0.056 H* (0.000-0.034) ng/mL
[2024-04-30 15:42] LABS: Appearance,Urine Clear (Clear); Bilirubin,Urine Negative (Negative); Blood,Urine Negative (Negative); Color,Urine Colorless; Glucose,Urine (UA) 3+ (Negative); Ketones,Urine Negative (Negative); Leukocyte Esterase,Urine Negative (Negative); Nitrite,Urine Negative (Negative); Protein,Urine Negative (Negative); Specific Gravity,Urine 1.007 (1.001-1.035); Urobilinogen,Urine <2.0 mg/dL (<2.0)
[2024-04-30] MEDS: AMIODARONE 450 MG in DEXTROSE 5% IN WATER 250 ML IV SCH (16:13)
[2024-04-30 17:18] LABS: Glucose,Whole Blood 158 mg/dL (70-110)
[2024-04-30] MEDS: MIDAZOLAM 2 MG/2 ML VIAL IV ONE (18:00)
--- NOTE | 2024-04-30 18:10 | ED ---
Medical Decision Making - Lab Data Result diagrams: 04/30/24 02:28 04/30/24 02:28 Lab Results 04/30/24 04/30/24 04/30/24 Range/Units 02:28 02:28 02:28 WBC 16.7 H (3.8-10.6) k/uL RBC 5.03 (4.30-5.90) m/uL Hgb 15.0 (13.0-17.5) gm/dL Hct 46.7 (39.0-53.0) % MCV 92.9 (80.0-100.0) fL MCH 29.8 (25.0-35.0) pg MCHC 32.1 (31.0-37.0) g/dL RDW 14.1 (11.5-15.5) % Plt Count 330 (150-450) k/uL MPV 8.4 Neutrophils % 81 % Lymphocytes % 13 % Monocytes % 4 % Eosinophils % 1 % Basophils % 0 % Neutrophils # 13.6 H (1.3-7.7) k/uL Lymphocytes # 2.2 (1.0-4.8) k/uL Monocytes # 0.7 (0-1.0) k/uL Eosinophils # 0.1 (0-0.7) k/uL Basophils # 0.0 (0-0.2) k/uL Hypochromasia Slight PT 13.1 H (10.0-12.5) sec INR 1.2 H (<1.2) APTT 28.1 (22.0-30.0) sec D-Dimer 0.48 (<0.60) mg/L FEU Sodium 139 (137-145) mmol/L Potassium 4.9 (3.5-5.1) mmol/L Chloride 114 H (98-107) mmol/L Carbon Dioxide 12 L (22-30) mmol/L Anion Gap 13 mmol/L BUN 36 H (9-20) mg/dL Creatinine 1.73 H (0.66-1.25) mg/dL Est GFR (CKD-EPI)AfAm 51 (>60 ml/min/1.73 sqM) Est GFR (CKD-EPI)NonAf 44 (>60 ml/min/1.73 sqM) Glucose 172 H (74-99) mg/dL Lactic Ac Sepsis Rflx Plasma Lactic Acid Tenzin (0.7-2.0) mmol/L Calcium 9.3 (8.4-10.2) mg/dL Total Bilirubin 0.6 (0.2-1.3) mg/dL AST 18 (17-59) U/L ALT 19 (4-49) U/L Alkaline Phosphatase 76 (38-126) U/L Troponin I (0.000-0.034) ng/mL NT-Pro-B Natriuret Pep 9960 pg/mL Total Protein 7.4 (6.3-8.2) g/dL Albumin 4.2 (3.5-5.0) g/dL 04/30/24 04/30/24 04/30/24 Range/Units 02:28 02:28 03:02 WBC (3.8-10.6) k/uL RBC (4.30-5.90) m/uL Hgb (13.0-17.5) gm/dL Hct (39.0-53.0) % MCV (80.0-100.0) fL MCH (25.0-35.0) pg MCHC (31.0-37.0) g/dL RDW (11.5-15.5) % Plt Count (150-450) k/uL MPV Neutrophils % % Lymphocytes % % Monocytes % % Eosinophils % % Basophils % % Neutrophils # (1.3-7.7) k/uL Lymphocytes # (1.0-4.8) k/uL Monocytes # (0-1.0) k/uL Eosinophils # (0-0.7) k/uL Basophils # (0-0.2) k/uL Hypochromasia PT (10.0-12.5) sec INR (<1.2) APTT (22.0-30.0) sec D-Dimer (<0.60) mg/L FEU Sodium (137-145) mmol/L Potassium (3.5-5.1) mmol/L Chloride (98-107) mmol/L Carbon Dioxide (22-30) mmol/L Anion Gap mmol/L BUN (9-20) mg/dL Creatinine (0.66-1.25) mg/dL Est GFR (CKD-EPI)AfAm (>60 ml/min/1.73 sqM) Est GFR (CKD-EPI)NonAf (>60 ml/min/1.73 sqM) Glucose (74-99) mg/dL Lactic Ac Sepsis Rflx Y Plasma Lactic Acid Tenzin 4.1 H* (0.7-2.0) mmol/L Calcium (8.4-10.2) mg/dL Total Bilirubin (0.2-1.3) mg/dL AST (17-59) U/L ALT (4-49) U/L Alkaline Phosphatase (38-126) U/L Troponin I 0.049 H* (0.000-0.034) ng/mL NT-Pro-B Natriuret Pep pg/mL Total Protein (6.3-8.2) g/dL Albumin (3.5-5.0) g/dL Disposition Clinical Impression: Atrial flutter with rapid ventricular response Disposition: ADMITTED IP TO THIS HOSP Condition: Fair Procedures - Procedures Initial comment: Synchronized cardioversion was performed. indication was A-fib with RVR. Patient was having A-fib RVR difficult to control. Per cardiology they recommended cardioversion. I was at the bedside present for the whole process. P patient was notified of risk and benefits of procedure. Patient given 2 mg of IV Versed. Sedation was achieved and patient was synchronized cardioverted with 100 J. Patient's rhythm converted to normal sinus rhythm. Patient tolerated procedure well. - Procedural Sedation *Procedural Sedation Start Time: 18:00 *Procedural Sedation Stop Time: 18:00 *Risks,benefits, and alternative therapies discussed?: Yes *Patient indicates understanding of risk/benefit discussion?: Yes *Indications: other *Previous Adverse Reaction to Anesthesia/Sedation?: No *ASA Class: II *Mallampati Airway Score: 2 Preparation: personnel monitor applied, pulse oximeter, capnometry used, supplemen carlos O2 applied Midazolam Dose: 2 Complications: none Patient Tolerated Procedure: well
[2024-04-30 20:26] LABS: Glucose,Whole Blood 157 mg/dL (70-110)
[2024-04-30] MEDS: ATORVASTATIN 40 MG TAB PO SCH (20:40)
[2024-04-30] MEDS ORDERED: METOPROLOL SUCCINATE (ER) 100 MG TAB.ER.24H PO SCH (21:00)
[2024-05-01] MEDS: ONDANSETRON 4 MG/2 ML VIAL IVP STA (00:18)
[2024-05-01 06:47] LABS: Basophils % (A) 0 %; Eosinophils # (A) 0.1 k/uL (0-0.7); Eosinophils % (A) 1 %; HCT 45.9 % (39.0-53.0); HGB 14.5 gm/dL (13.0-17.5); Hypochromasia Slight; Lymphocytes # (A) 2.7 k/uL (1.0-4.8); Lymphocytes % (A) 19 %; MCH 29.2 pg (25.0-35.0); MCHC 31.7 g/dL (31.0-37.0); MCV 92.4 fL (80.0-100.0); Mean Platelet Volume 8.5; Monocytes # (A) 0.8 k/uL (0-1.0); Monocytes % (A) 6 %; Neutrophils # (A) 10.9 k/uL (1.3-7.7); Neutrophils % (A) 74 %; Platelet Count 289 k/uL (150-450); RBC 4.97 m/uL (4.30-5.90); RDW 14.2 % (11.5-15.5); WBC 14.7 k/uL (3.8-10.6)
[2024-05-01 06:52] LABS: Glucose,Whole Blood 137 mg/dL (70-110)
[2024-05-01 07:04] LABS: ALT 21 U/L (4-49); AST 19 U/L (17-59); African American GFR (CKD) 53 (>60 ml/min/1.73 sqM); Albumin 4.1 g/dL (3.5-5.0); Alkaline Phosphatase 61 U/L (38-126); Anion Gap 12 mmol/L; Blood Urea Nitrogen 37 mg/dL (9-20); Calcium 9.4 mg/dL (8.4-10.2); Carbon Dioxide 22 mmol/L (22-30); Chloride 108 mmol/L (98-107); Glucose 140 mg/dL (74-99); Non-African American GFR(CKD) 46 (>60 ml/min/1.73 sqM); Potassium 4.2 mmol/L (3.5-5.1); Sodium 142 mmol/L (137-145); Total Bilirubin 1.3 mg/dL (0.2-1.3)
[2024-05-01] MEDS ORDERED: ASPIRIN 325 MG TAB PO SCH (09:00)
[2024-05-01] MEDS: ASPIRIN 81 MG PO SCH (09:41)
[2024-05-01] MEDS: AMIODARONE 200 MG TAB PO SCH (09:41)
[2024-05-01 10:20] LABS: Chol/HDL Ratio 5.59 Ratio; LDL Cholesterol,Calculated 87.9 mg/dL (0.0-131.0)
[2024-05-01 11:39] LABS: Glucose,Whole Blood 181 mg/dL (70-110)
[2024-05-01] MEDS: FUROSEMIDE 10 MG/ML 4 ML VIAL IV SCH (11:48)
--- NOTE | 2024-05-01 12:32 | P.PN ---
Subjective HISTORY OF PRESENT ILLNESS: This is a 54-year-old male who follows in the office with Dr. Cameron. Patient is admitted to the hospital secondary to atrial flutter with RVR. Patient was started on IV amiodarone. Patient has converted to sinus mechanism and is maintaining sinus mechanism with a heart rate around 80 this morning. Patient currently denies any chest pain or pressure. He denies any shortness of breath. Vital signs are stable. PHYSICAL EXAM: VITAL SIGNS: Reviewed. GENERAL: Well-developed in no acute distress. NECK: Supple. No JVD or thyromegaly LUNGS: Respirations even and unlabored. Lungs essentially clear to auscultation bilaterally. HEART: Regular rate and rhythm. S1 and S2 heard. EXTREMITIES: Normal range of motion. No clubbing or cyanosis. Peripheral pulses intact. No lower extremity edema ASSESSMENT: Paroxysmal typical atrial flutter with RVR, currently maintaining sinus mechanism History of recent aflutter ablation, December 2023 History of nonischemic/tachycardia induced cardiomyopathy, 25 to 30% Acute on chronic heart failure with reduced EF, currently euvolemic Elevated troponins, type II MO Chronic kidney disease Hypertension Hyperlipidemia Diabetes PLAN: Begin oral amiodarone 200 mg twice a day. Decrease to 200mg daily after 1 week. Continue additional cardiac medications Continue telemetry monitoring Further recommendations pending patient course Nurse practitioner note has been reviewed by physician. Signing provider agrees with the documented findings, assessment, and plan of care documented by [employer]ACHINE as a scribe. Objective - Vital Signs Vital signs: Vital Signs Temp 98 F 05/01/24 09:40 Pulse 84 05/01/24 09:40 Resp 16 05/01/24 09:40 BP 116/63 05/01/24 09:40 Pulse Ox 96 05/01/24 09:40 FiO2 Intake & Output 04/30/24 05/01/24 05/01/24 18:59 06:59 18:59 Intake Total 37.167 344.172 Output Total 1725 1000 Balance -1687.833 -655.828 Intake: Intake, IV Titration 37.167 244.172 Amount Amiodarone 450 mg In 244.172 Dextrose 5% in Water 250 ml @ 0.5 MG/MIN 16.667 mls/hr IV .Q15H [facility] Rx#: [id number] Diltiazem 125 mg In 37.167 Sodium Chloride 0.9% 100 ml @ 5 MG/HR 5 mls/hr IV .Q24H [facility] Rx#:[id number] Oral 100 Output: Urine 1725 1000 Other: # Voids 2 - Labs CBC & Chem 7: 05/01/24 06:21 05/01/24 06:21 Labs: Abnormal Lab Results - Last 24 Hours (Table) 04/30/24 04/30/24 04/30/24 Range/Units 11:15 15:20 17:16 WBC (3.8-10.6) k/uL Neutrophils # (1.3-7.7) k/uL Chloride (98-107) mmol/L BUN (9-20) mg/dL Creatinine (0.66-1.25) mg/dL Glucose (74-99) mg/dL POC Glucose (mg/dL) 158 H (70-110) mg/dL Troponin I 0.056 H* (0.000-0.034) ng/mL Triglycerides (0.00-149.00) mg/dL VLDL Cholesterol, Calc (5.00-40.00) mg/dL HDL Cholesterol (40.00-60.00) mg/dL Urine Glucose (UA) 3+ H (Negative) 04/30/24 05/01/24 05/01/24 Range/Units 20:25 06:21 06:21 WBC 14.7 H (3.8-10.6) k/uL Neutrophils # 10.9 H (1.3-7.7) k/uL Chloride 108 H (98-107) mmol/L BUN 37 H (9-20) mg/dL Creatinine 1.67 H (0.66-1.25) mg/dL Glucose 140 H (74-99) mg/dL POC Glucose (mg/dL) 157 H (70-110) mg/dL Troponin I (0.000-0.034) ng/mL Triglycerides 201.00 H (0.00-149.00) mg/dL VLDL Cholesterol, Calc 40.20 H (5.00-40.00) mg/dL HDL Cholesterol 27.90 L (40.00-60.00) mg/dL Urine Glucose (UA) (Negative) 05/01/24 Range/Units 06:51 WBC (3.8-10.6) k/uL Neutrophils # (1.3-7.7) k/uL Chloride (98-107) mmol/L BUN (9-20) mg/dL Creatinine (0.66-1.25) mg/dL Glucose (74-99) mg/dL POC Glucose (mg/dL) 137 H (70-110) mg/dL Troponin I (0.000-0.034) ng/mL Triglycerides (0.00-149.00) mg/dL VLDL Cholesterol, Calc (5.00-40.00) mg/dL HDL Cholesterol (40.00-60.00) mg/dL Urine Glucose (UA) (Negative)
--- NOTE | 2024-05-01 15:39 | P.PN ---
Subjective Progress Note Date: 05/01/24 Interval History: This is a 54-year-old male patient with past medical history significant for atrial fibrillation status post ablation, hypertension, hyperlipidemia, history of systolic CHF with EF 25 to 30%, diabetes mellitus, CKD who presented to ER with a complaint of increasing shortness of breath, difficulty laying flat, lower extremity swelling, weight gain. Patient stated that symptoms started for the last week or so. Patient denied any fever or chills. Patient reported cough with clear sputum production, worse in the morning. Patient also reported frequent wakening in the middle of the night with cough. Patient was noted to be in atrial flutter with RVR with heart rate in the 150s on admission, also had elevated troponin and elevated lactate. Patient denied headache, vision change, chest pain, palpitations, nausea vomiting diarrhea constipation abdominal pain dysuria urgency frequency weakness or numbness of the extremities. Chest x-ray showed cardiomegaly, vascular congestion. EKG showed atrial flutter with RVR, heart rate 151, respiratory rate 20, blood pressure 122/96, saturating 93% on room air. WBC 16.7, hemoglobin 15.0, platelet 330. INR 1.2. Sodium 139 potassium 4.9 CO2 12 BUN 36 creatinine 1.73, lactate 4.1 came down to 2.0. Troponin 0.049, 0.053, 0.056. 05/01/2024: Patient was seen and examined today. Remained afebrile, heart rate 77, normal sinus rhythm, respiratory rate 16, blood pressure 119/74, saturating 94% on room air. WBCs 14.7, normal hemoglobin and platelet. Creatinine slightly down to 1.67, BUN 37. Potassium 4.2. LDL 87.9. Patient underwent cardioversion yesterday due to persistent atrial flutter with RVR, currently on normal sinus rhythm, shortness of breath is mildly better as compared to yesterday. Will continue IV diuresis, amiodarone drip switched to p.o. amiodarone per cardiology. Assessment and plan: Atrial flutter with RVR: Status post cardioversion 04/30/2024 Status post recent ablation in December 2023: Acute systolic CHF: Elevated troponin: Demand ischemia MARK on CKD: Elevated lactate Diabetes mellitus Hypertension Hyperlipidemia Plan: Presented with shortness of breath, lower extremity edema, orthopnea, PND Noted to be in atrial flutter with RVR in the ED. Continue Eliquis Aspirin, statin Hold Entresto and Jardiance Continue IV diuresis with Lasix Amiodarone drip>> p.o. amiodarone 200 mg twice daily, decreased to 200 mg daily in 1 week. Increase metoprolol to 100 mg twice daily per cardiology Cardiology consulted and following. No suspicion of sepsis, blood cultures ordered. Elevated lactate likely secondary to low tissue perfusion DVT prophylaxis: AC Monitor vital signs and labs Labs and medication were reviewed. Continue same treatment. Further recommendations as per clinical course of the patient PHYSICAL EXAMINATION: GENERAL: The patient is A&O x3, NAD HEENT: EOMI, Sclerae anicteric, Moist Mucous membranes Neck: Supple, Non tender, No JVD PULMONARY: Equal breath souds B/L, No wheezing, No crackles. CARDIOVASCULAR: S1, S2 present. No murmurs, rubs, or gallops. ABDOMEN: Soft, nontender, nondistended, normoactive bowel sounds. No guarding or rebound tenderness. MUSCULOSKELETAL: + edema, No cyanosis. No clubbing. Normal ROM. Intact peripheral pulses. EXTREMITIES: No cyanosis, clubbing, or pedal edema. NEUROLOGICAL: CN 2-12 grossly intact. No FND Skin: No Rash REVIEW OF SYSTEMS: CONSTITUTIONAL: No fever or chills. CARDIOVASCULAR: No chest pain, palpitations or syncope. PULMONARY: Shortness of breath, lower extremity swelling GASTROINTESTINAL: No nausea, vomiting, diarrhea, abdominal pain. : No Dysuria, urgency, frequency. NEUROLOGICAL: No headaches, no weakness, or numbness Dictation was produced using [email or web address] dictation software. please excuse any grammatical, word or spelling errors. Objective - Vital Signs Vital signs: Vital Signs Temp 97.4 F L 05/01/24 10:45 Pulse 77 05/01/24 14:45 Resp 16 05/01/24 14:45 BP 119/74 05/01/24 14:43 Pulse Ox 91 L 05/01/24 14:43 FiO2 Intake & Output 04/30/24 05/01/24 05/01/24 18:59 06:59 18:59 Intake Total 37.167 344.172 236 Output Total 1725 1000 1125 Balance -1687.833 -655.828 -889 Weight 97.976 kg Intake: Intake, IV Titration 37.167 244.172 Amount Amiodarone 450 mg In 244.172 Dextrose 5% in Water 250 ml @ 0.5 MG/MIN 16.667 mls/hr IV .Q15H BRIANDA Rx#: [id number] Diltiazem 125 mg In 37.167 Sodium Chloride 0.9% 100 ml @ 5 MG/HR 5 mls/hr IV .Q24H BRIANDA Rx#:[id number] Oral 100 236 Output: Urine 1725 1000 1125 Other: Voiding Method Toilet # Voids 2 - Labs CBC & Chem 7: 05/01/24 06:21 05/01/24 06:21 Labs: Abnormal Lab Results - Last 24 Hours (Table) 04/30/24 04/30/24 04/30/24 Range/Units 15:20 17:16 20:25 WBC (3.8-10.6) k/uL Neutrophils # (1.3-7.7) k/uL Chloride (98-107) mmol/L BUN (9-20) mg/dL Creatinine (0.66-1.25) mg/dL Glucose (74-99) mg/dL POC Glucose (mg/dL) 158 H 157 H (70-110) mg/dL Triglycerides (0.00-149.00) mg/dL VLDL Cholesterol, Calc (5.00-40.00) mg/dL HDL Cholesterol (40.00-60.00) mg/dL Urine Glucose (UA) 3+ H (Negative) 05/01/24 05/01/24 05/01/24 Range/Units 06:21 06:21 06:51 WBC 14.7 H (3.8-10.6) k/uL Neutrophils # 10.9 H (1.3-7.7) k/uL Chloride 108 H (98-107) mmol/L BUN 37 H (9-20) mg/dL Creatinine 1.67 H (0.66-1.25) mg/dL Glucose 140 H (74-99) mg/dL POC Glucose (mg/dL) 137 H (70-110) mg/dL Triglycerides 201.00 H (0.00-149.00) mg/dL VLDL Cholesterol, Calc 40.20 H (5.00-40.00) mg/dL HDL Cholesterol 27.90 L (40.00-60.00) mg/dL Urine Glucose (UA) (Negative) 05/01/24 Range/Units 11:38 WBC (3.8-10.6) k/uL Neutrophils # (1.3-7.7) k/uL Chloride (98-107) mmol/L BUN (9-20) mg/dL Creatinine (0.66-1.25) mg/dL Glucose (74-99) mg/dL POC Glucose (mg/dL) 181 H (70-110) mg/dL Triglycerides (0.00-149.00) mg/dL VLDL Cholesterol, Calc (5.00-40.00) mg/dL HDL Cholesterol (40.00-60.00) mg/dL Urine Glucose (UA) (Negative)
[2024-05-01 16:57] LABS: Glucose,Whole Blood 135 mg/dL (70-110)
[2024-05-01 20:09] LABS: Glucose,Whole Blood 205 mg/dL (70-110)
[2024-05-02 06:06] LABS: Glucose,Whole Blood 135 mg/dL (70-110)
[2024-05-02 06:55] LABS: Basophils % (A) 1 %; Eosinophils # (A) 0.1 k/uL (0-0.7); Eosinophils % (A) 1 %; HCT 43.9 % (39.0-53.0); HGB 14.2 gm/dL (13.0-17.5); Lymphocytes # (A) 2.2 k/uL (1.0-4.8); Lymphocytes % (A) 25 %; MCH 29.6 pg (25.0-35.0); MCHC 32.3 g/dL (31.0-37.0); MCV 91.5 fL (80.0-100.0); Mean Platelet Volume 8.4; Monocytes # (A) 0.5 k/uL (0-1.0); Monocytes % (A) 6 %; Neutrophils # (A) 5.9 k/uL (1.3-7.7); Neutrophils % (A) 67 %; Platelet Count 260 k/uL (150-450); RDW 14.5 % (11.5-15.5); WBC 8.8 k/uL (3.8-10.6)
[2024-05-02 07:07] LABS: African American GFR (CKD) 53 (>60 ml/min/1.73 sqM); Anion Gap 8 mmol/L; Blood Urea Nitrogen 31 mg/dL (9-20); Calcium 9.2 mg/dL (8.4-10.2); Carbon Dioxide 28 mmol/L (22-30); Chloride 106 mmol/L (98-107); Glucose 132 mg/dL (74-99); Non-African American GFR(CKD) 46 (>60 ml/min/1.73 sqM); Sodium 142 mmol/L (137-145)
[2024-05-02] MEDS: SACUBITRIL/VALSARTAN 24 MG-26 MG TABLET PO SCH (09:55)
[2024-05-02 10:51] VITALS: RESP 16
[2024-05-02 11:34] LABS: Glucose,Whole Blood 134 mg/dL (70-110)
--- NOTE | 2024-05-02 11:49 | P.PN ---
Subjective HISTORY OF PRESENT ILLNESS: This is a 54-year-old male who follows in the office with Dr. Cameron. Patient is admitted to the hospital secondary to atrial flutter with RVR. Patient was started on IV amiodarone. Patient has converted to sinus mechanism and is maintaining sinus mechanism with a heart rate around 80 this morning. Patient currently denies any chest pain or pressure. He denies any shortness of breath. Vital signs are stable. 05/02/2024 Patient examined this morning at the bedside. Patient currently denies chest pain or pressure. He denies shortness of breath. He is maintaining sinus mechanism on telemetry. Blood pressure is stable. PHYSICAL EXAM: VITAL SIGNS: Reviewed. GENERAL: Well-developed in no acute distress. NECK: Supple. No JVD or thyromegaly LUNGS: Respirations even and unlabored. Lungs essentially clear to auscultation bilaterally. HEART: Regular rate and rhythm. S1 and S2 heard. EXTREMITIES: Normal range of motion. No clubbing or cyanosis. Peripheral pulses intact. 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 Decrease to 200mg daily after 1 week. Continue additional cardiac medications Discontinue IV Lasix Resume Entresto Continue telemetry monitoring Patient is currently stable from a cardiac perspective Further recommendations pending patient course Nurse practitioner note has been reviewed by physician. Signing provider agrees with the documented findings, assessment, and plan of care documented by [employer] as a scribe. Objective - Vital Signs Vital signs: Vital Signs Temp 98.2 F 05/02/24 10:49 Pulse 76 05/02/24 10:49 Resp 16 05/02/24 10:49 BP 106/61 05/02/24 10:49 Pulse Ox 95 05/02/24 10:49 FiO2 Intake & Output 05/01/24 05/02/24 05/02/24 18:59 06:59 18:59 Intake Total 354 190 Output Total 9535 736 900 Balance -311 -650 -141 Weight 97.976 kg 99.1 kg Intake: IV 10 Invasive Line 1 10 Oral 354 180 Output: Urine 1125 650 900 Other: Voiding Method Toilet Toilet Toilet - Labs CBC & Chem 7: 05/02/24 06:15 05/02/24 06:15 Labs: Abnormal Lab Results - Last 24 Hours (Table) 05/01/24 05/01/24 05/02/24 Range/Units 16:56 20:08 06:01 BUN (9-20) mg/dL Creatinine (0.66-1.25) mg/dL Glucose (74-99) mg/dL POC Glucose (mg/dL) 135 H 205 H 135 H (70-110) mg/dL 05/02/24 05/02/24 Range/Units 06:15 11:32 BUN 31 H (9-20) mg/dL Creatinine 1.69 H (0.66-1.25) mg/dL Glucose 132 H (74-99) mg/dL POC Glucose (mg/dL) 134 H (70-110) mg/dL Microbiology - Last 24 Hours (Table) 04/30/24 16:09 Blood Culture - Preliminary Blood
--- NOTE | 2024-05-02 14:58 | P.DS ---
Providers Date of admission: 04/30/24 04:10 Expected date of discharge: 05/02/24 Attending physician: Gwen Tracy Consults: 04/30/24 04:10 Consult Physician Routine Consulting Provider: Yaron Cameron Consult Reason/Comments: Flutter with rapid ventricular rate Do you want consulting provider notified?: Yes Primary care physician: [place] Course: Discharge diagnoses: Atrial flutter with RVR: Status post cardioversion 04/30/2024 Status post recent ablation in December 2023: Acute systolic CHF: Elevated troponin: Demand ischemia MARK on CKD: Elevated lactate Diabetes mellitus Hypertension Hyperlipidemia Plan: Presented with shortness of breath, lower extremity edema, orthopnea, PND Noted to be in atrial flutter with RVR in the ED. Continue Eliquis Aspirin, statin Hold Entresto and Jardiance Received IV diuresis with Lasix. Amiodarone drip>> p.o. amiodarone 200 mg twice daily, decreased to 200 mg daily in 1 week. Continue metoprolol 100 mg twice daily. Cardiology consultedappreciate recs. No suspicion of sepsis, blood cultures ordered. Elevated lactate likely secondary to low tissue perfusion Hospital course: This is a 54-year-old male patient with past medical history significant for atrial fibrillation status post ablation, hypertension, hyperlipidemia, history of systolic CHF with EF 25 to 30%, diabetes mellitus, CKD who presented to ER with a complaint of increasing shortness of breath, difficulty laying flat, lower extremity swelling, weight gain. Patient stated that symptoms started for the last week or so. Patient denied any fever or chills. Patient reported cough with clear sputum production, worse in the morning. Patient also reported frequent wakening in the middle of the night with cough. Patient was noted to be in atrial flutter with RVR with heart rate in the 150s on admission, also had elevated troponin and elevated lactate. Patient denied headache, vision change, chest pain, palpitations, nausea vomiting diarrhea constipation abdominal pain dysuria urgency frequency weakness or numbness of the extremities. Chest x-ray showed cardiomegaly, vascular congestion. EKG showed atrial flutter with RVR, heart rate 151, respiratory rate 20, blood pressure 122/96, saturating 93% on room air. WBC 16.7, hemoglobin 15.0, platelet 330. INR 1.2. Sodium 139 potassium 4.9 CO2 12 BUN 36 creatinine 1.73, lactate 4.1 came down to 2.0. Troponin 0.049, 0.053, 0.056. 05/01/2024: Patient was seen and examined today. Remained afebrile, heart rate 77, normal sinus rhythm, respiratory rate 16, blood pressure 119/74, saturating 94% on room air. WBCs 14.7, normal hemoglobin and platelet. Creatinine slightly down to 1.67, BUN 37. Potassium 4.2. LDL 87.9. Patient underwent cardioversion yesterday due to persistent atrial flutter with RVR, currently on normal sinus rhythm, shortness of breath is mildly better as compared to yesterday. Will continue IV diuresis, amiodarone drip switched to p.o. amiodarone per cardiology. 05/02/2024 Patient was seen Today. Vitals remained stable, blood pressure stable, heart rate in normal sinus rhythm uncontrolled. Okay to discharge per cardiology. Patient continued on statin, Entresto, beta-mustapha, Jardiance. IV diuresis discontinued. Continued on amiodarone 200 mg twice daily for total 1 week then 200 mg daily afterwards. Patient's condition and vital stable at discharge Follow-up with PCP in 1 week. Follow-up with cardiology as outpatient. PHYSICAL EXAMINATION: GENERAL: The patient is A&O x3, NAD HEENT: EOMI, Sclerae anicteric, Moist Mucous membranes Neck: Supple, Non tender, No JVD PULMONARY: Equal breath souds B/L, No wheezing, No crackles. CARDIOVASCULAR: S1, S2 present. No murmurs, rubs, or gallops. ABDOMEN: Soft, nontender, nondistended, normoactive bowel sounds. No guarding or rebound tenderness. MUSCULOSKELETAL: No edema, No cyanosis. No clubbing. Normal ROM. Intact peripheral pulses. NEUROLOGICAL: CN 2-12 grossly intact. No FND SKIN: No rashes. Dictation was produced using [employer] dictation software. please excuse any grammatical, word or spelling errors. Patient Condition at Discharge: Fair Plan - Discharge Summary Discharge Rx Participant: No New Discharge Prescriptions: New Amiodarone [Cordarone] See Rx Instructions .ROUTE .COMPLEX #40 tab Atorvastatin [Lipitor] 40 mg PO HS #30 tab Continue Apixaban [Eliquis] 5 mg PO BID metFORMIN HCL [Glucophage] 1,000 mg PO BID Empagliflozin [Jardiance] 10 mg PO DAILY Metoprolol Succinate (ER) [Toprol XL] 100 mg PO BID Benzonatate [Tessalon Perles] 100 mg PO TID PRN PRN Reason: Cough Tamsulosin [Flomax] 0.4 mg PO DAILY PRN PRN Reason: kidney stones Sacubitril/Valsartan [Entresto 24 mg-26 mg Tablet] 1 tab PO BID Discharge Medication List Apixaban [Eliquis] 5 mg PO BID 09/06/23 [History] Empagliflozin [Jardiance] 10 mg PO DAILY 09/06/23 [History] metFORMIN HCL [Glucophage] 1,000 mg PO BID 09/06/23 [History] Benzonatate [Tessalon Perles] 100 mg PO TID PRN 04/30/24 [History] Metoprolol Succinate (ER) [Toprol XL] 100 mg PO BID 04/30/24 [History] Sacubitril/Valsartan [Entresto 24 mg-26 mg Tablet] 1 tab PO BID 04/30/24 [History] Tamsulosin [Flomax] 0.4 mg PO DAILY PRN 04/30/24 [History] Amiodarone [Cordarone] See Rx Instructions .ROUTE .COMPLEX #40 tab 05/02/24 [Rx] Atorvastatin [Lipitor] 40 mg PO HS #30 tab 05/02/24 [Rx] Follow up Appointment(s)/Referral(s): Wilfrid Cheung MD [Primary Care Provider] - 1-2 days Discharge Disposition: HOME SELF-CARE
[2024-05-02 16:13] VITALS: BP 119/78; PULSE 75; TEMP 98.2
[2024-05-05] MEDS ORDERED: NON FORMULARY DRUG (Semaglutide [Ozempic] 0.25 MG/0.368 ML Pen.Injctr) SQ SCH (09:00)
== END 2024-05-02 17:00 | disposition home or self-care (01) | DRG 280 ==
LOC: EC 01:39 → 3SCARD 04:10
PROVIDERS: ADMIT Hospitalist; ATTEND Hospitalist
PROC: 5A2204Z Restoration of Cardiac Rhythm, Single (ICD-10-PCS; principal; 2024-04-30)
DX: I48.3 Typical atrial flutter (principal); I50.23 Acute on chronic systolic (congestive) heart failure; I21.A1 Myocardial infarction type 2; I13.0 Hypertensive heart and chronic kidney disease with heart failure and stage 1 through stage 4 chronic kidney disease, or unspecified chronic kidney disease; E87.20 Acidosis, unspecified; N17.9 Acute kidney failure, unspecified; I42.8 Other cardiomyopathies; E11.22 Type 2 diabetes mellitus with diabetic chronic kidney disease; E78.5 Hyperlipidemia, unspecified; I48.91 Unspecified atrial fibrillation; N18.9 Chronic kidney disease, unspecified; Z79.01 Long term (current) use of anticoagulants; Z79.84 Long term (current) use of oral hypoglycemic drugs; Z79.899 Other long term (current) drug therapy; Z87.442 Personal history of urinary calculi; Z28.21 Immunization not carried out because of patient refusal; Z88.2 Allergy status to sulfonamides
CPT/HCPCS: 36415; 71046; 80048; 80053; 80061; 81003; 83605; 83735; 83880; 84484; 85025; 85379; 85610; 85730; 87040; 93005; 96365; 96366; 96367; 96368; 96375; 99291

== ENCOUNTER → 2024-07-05 | Outpatient (CLI) | payer MEDICAID ==
[2024-07-05 19:23] LABS: HCT 46.9 % (39.6-50.0); HGB 15.4 g/dL (13.0-17.0); MCH 29.9 pg (27.0-32.0); MCHC 32.8 g/dL (32.0-37.0); MCV 91.1 FL (80.0-97.0); NRBC Per 100 WBC 0 X 10*3/uL (0.00-0.01); Platelet Count 220 X 10*3/uL (140-440); RBC 5.15 X 10*6/uL (4.40-5.60); RDW 13.9 % (11.5-14.5); WBC 8.42 X 10*3/uL (4.50-10.00)
[2024-07-05 19:29] LABS: Blood Urea Nitrogen 27.9 mg/dL (9.0-27.0); Carbon Dioxide 27.1 mmol/L (21.6-31.8); Chloride 105 mmol/L (96-109); Potassium 4.8 mmol/L (3.5-5.5); Sodium 143 mmol/L (135-145)
== END | disposition home or self-care (01) ==
LOC: LABPAT 15:36
PROVIDERS: ATTEND Internal Medicine Clinical Cardiac Electrophysiology
DX: Z01.812 Encounter for preprocedural laboratory examination (principal); I48.19 Other persistent atrial fibrillation; I48.92 Unspecified atrial flutter
CPT/HCPCS: 80051; 82565; 84520; 85027

== ENCOUNTER 2024-12-30 06:58 | Emergency (ER) | payer MEDICAID ==
[2024-12-30] MEDS: SODIUM CHLORIDE 0.9% 1,000 ML IV STA (07:37)
--- NOTE | 2024-12-30 07:37 | ED ---
General Adult HPI - General Chief complaint: Chest Pain Stated complaint: elevated heart rate Time Seen by Provider: 12/30/24 07:00 Source: patient, RN notes reviewed, old records reviewed Mode of arrival: wheelchair - History of Present Illness Initial comments: This is a 54-year-old male who presents to the emergency department complaining that his heart is racing. Patient stated started last night about 10 PM. Patient states he got up this morning took his amiodarone and his beta-mustapha but his heart rate continues to race. Patient states he can feel a pounding heart. Patient denies actual pain. Patient denies any difficulty breathing or shortness of breath. Patient states when he gets up and around he feels like he goes faster. Patient states she has had 2 ablations in the past as well as 2 cardioversions. Patient states he has been dealing with atrial fibrillation for 10 years. Patient denies any recent fever chills. Patient Nu[place] any abdominal pain. - Related Data Home Medications Medication Instructions Recorded Confirmed Apixaban [Eliquis] 5 mg PO BID 09/06/23 07/24/24 Empagliflozin [Jardiance] 10 mg PO DAILY 09/06/23 07/24/24 metFORMIN HCL [Glucophage] 1,000 mg PO BID 09/06/23 07/24/24 Metoprolol Succinate (ER) [Toprol 100 mg PO BID 04/30/24 07/24/24 XL] Sacubitril/Valsartan [Entresto 24 1 tab PO BID 04/30/24 07/24/24 mg-26 mg Tablet] Tamsulosin [Flomax] 0.4 mg PO DAILY PRN 04/30/24 07/24/24 Amiodarone [Cordarone] 100 mg PO DAILY 07/19/24 07/24/24 tadalafiL 10 mg PO ONCE PRN 07/24/24 07/24/24 Previous Rx's Medication Instructions Recorded Atorvastatin [Lipitor] 40 mg PO HS #30 tab 05/02/24 Allergies Allergy/AdvReac Type Severity Reaction Status Date / Time Sulfa (Sulfonamide Allergy Anaphylaxis, Verified 12/30/24 07:03 Antibiotics) Tongue swelling Review of Systems ROS Statement: Those systems with pertinent positive or pertinent negative responses have been documented in the HPI. ROS Other: All systems not noted in ROS Statement are negative. Past Medical History Past Medical History: Atrial Fibrillation, Hyperlipidemia, Hypertension Additional Past Medical History / Comment(s): Hypertension and hypertensive cardiovascular disease, hyperlipidemia, overweight, kidney stones. History of Any Multi-Drug Resistant Organisms: None Reported Past Surgical History: No Surgical Hx Reported Additional Past Surgical History / Comment(s): Sebaceous cyst removed from the back. Past Anesthesia/Blood Transfusion Reactions: No Reported Reaction Additional Past Anesthesia/Blood Transfusion Reaction / Comment(s): had to be cathed after last ablation Past Psychological History: No Psychological Hx Reported Smoking Status: Never smoker Past Alcohol Use History: Rare Past Drug Use History: None Reported - Past Family History Mother Family Medical History: COPD Additional Family Medical History / Comment(s): pneumothorax Father Family Medical History: Vascular Disorder Additional Family Medical History / Comment(s): aortic anuerysm Brother(s) Family Medical History: No Reported History Sister(s) Family Medical History: No Reported History Daughter(s) Family Medical History: No Reported History Son(s) Family Medical History: No Reported History General Exam - General Exam Comments Initial Comments: GENERAL: Patient is well-developed and well-nourished. Patient is nontoxic and well- hydrated and is in mild distress. ENT: Neck is soft and supple. No significant lymphadenopathy is noted. Oropharynx is clear. Moist mucous membranes. Neck has full range of motion without eliciting any pain. EYES: The sclera were anicteric and conjunctiva were pink and moist. Extraocular movements were intact and pupils were equal round and reactive to light. Eyelids were unremarkable. PULMONARY: Unlabored respirations. Good breath sounds bilaterally. No audible rales rhonchi or wheezing was noted. CARDIOVASCULAR: Patient heart rate is about 150 beats a minute ABDOMEN: Soft and nontender with normal bowel sounds. SKIN: Skin is clear with no lesions or rashes and otherwise unremarkable. NEUROLOGIC: Patient is alert and oriented x3. Cranial nerves II through XII are grossly intact. Motor and sensory are also intact. Normal speech, volume and content. Symmetrical smile. MUSCULOSKELETAL: Normal extremities with adequate strength and full range of motion. LYMPHATICS: No significant lymphadenopathy is noted PSYCHIATRIC: Normal psychiatric evaluation. Course Vital Signs 12/30/24 12/30/24 12/30/24 07:00 07:19 07:53 Temperature 97.7 F Pulse Rate 157 H 152 H 126 H Respiratory 22 18 Rate Blood Pressure 140/95 129/99 O2 Sat by Pulse 100 98 Oximetry 12/30/24 12/30/24 08:07 09:07 Temperature Pulse Rate 81 90 Respiratory 16 Rate Blood Pressure 129/76 O2 Sat by Pulse 96 Oximetry Medical Decision Making - Medical Decision Making EKG is interpreted by myself but EKG shows atrial flutter at 157 bpm QRS 105 QT interval is 291 QTc is 379. Patient's EKG shows no ST segment elevation. Patient was started on Cardizem. Patient converted almost immediately after Cardizem bolus. Patient's EKG was repeated it was interpreted by myself. EKG shows sinus rhythm at 90 bpm CA interval is 120 QRS is 104 QT interval is 371 QTc is 419. Patient's EKG has multiple PVCs Was pt. sent in by a medical professional or institution (, PA, LIFE GUARD, urgent care, hospital, or group home...) When possible be specific @ -No Did you speak to anyone other than the patient for history (EMS, parent, family, police, friend...)? What history was obtained from this source @ -No Did you review nursing and triage notes (agree or disagree)? Why? @ -I reviewed and agree with nursing and triage notes Were old charts reviewed (outside hosp., previous admission, EMS record, old EKG, old radiological studies, urgent care reports/EKG's, group home records)? Report findings @ -No old charts were reviewed Differential Diagnosis? @ -Differential Palpitations Ventricular arrhythmias, atrial arrhythmias, myocardial infarction, anemia, thyrotoxicosis, electrolyte imbalance, hypokalemia, pulmonary embolism, pulmonary disease, drugs, alcohol, anxiety, stress.... This is not meant to be an all-inclusive list. EKG interpreted by me (3pts min.). @ -As above X-rays interpreted by me (1pt min.). @ -Chest x-ray shows no acute abnormality CT interpreted by me (1pt min.). @ -None done U/S interpreted by me (1pt. min.). @ -None done What testing was considered but not performed or refused? (CT, X-rays, U/S, labs)? Why? @ -None What meds were considered but not given or refused? Why? @ -None Did you discuss the management of the patient with other professionals (professionals i.e. , PA, LIFE GUARD, lab, RT, psych nurse, social media content specialist, bookmaker map, teacher, compliance review officer, case management rn)? Give summary @ -I spoke with Dr. Vick on 2 occasions Was smoking cessation discussed for >3mins.? @ -No Was critical care preformed (if so, how long)? @ -35 minutes Were there social determinants of health that impacted care today? How? (Homelessness, low income, unemployed, alcoholism, drug addiction, transportation, low edu. Level, literacy, decrease access to med. care, long term, rehab)? @ -No Was there de-escalation of care discussed even if they declined (Discuss DNR or withdrawal of care, Hospice)? DNR status @ -No What co-morbidities impacted this encounter? (DM, HTN, Smoking, COPD, CAD, Cancer, CVA, ARF, Chemo, Hep., AIDS, mental health diagnosis, sleep apnea, morbid obesity)? @ -None Was patient admitted / discharged? Hospital course, mention meds given and route, prescriptions, significant lab abnormalities, going to OR and other pert inent info. @ -Patient was given a bolus of Cardizem and placed on a Cardizem drip. Patient converted to a normal sinus rhythm with PVCs I went back and reevaluated the patient his PVCs were very infrequent at this point and he felt back to his baseline I spoke with Dr. Vick and he felt it was okay to send the patient home and he will follow-up with cardiology Undiagnosed new problem with uncertain prognosis? @ -No Drug Therapy requiring intensive monitoring for toxicity (Heparin, Nitro, Insuli n, Cardizem)? @ -No Were any procedures done? @ -No Diagnosis/symptom? @ -A flutter with rapid ventricular response Acute, or Chronic, or Acute on Chronic? @ -Acute Uncomplicated (without systemic symptoms) or Complicated (systemic symptoms)? @ -Complicated Side effects of treatment? @ -No Exacerbation, Progression, or Severe Exacerbation? @ -No Poses a threat to life or bodily function? How? (Chest pain, USA, CT, pneumonia, PE, COPD, DKA, ARF, appy, cholecystitis, CVA, Diverticulitis, Homicidal, Suicidal, threat to staff... and all critical care pts) @ -Yes this could lead to poor perfusion and endorgan dysfunction - Lab Data Result diagrams: 12/30/24 07:35 12/30/24 07:35 Lab Results 12/30/24 12/30/24 12/30/24 Range/Units 07:35 07:35 07:35 WBC 12.16 H (4.50-10.00) 10*3/uL RBC 5.55 (4.40-5.60) 10*6/uL Hgb 17.4 H (13.0-17.0) g/dL Hct 49.5 (39.6-50.0) % MCV 89.2 (80.0-97.0) fL MCH 31.4 (27.0-32.0) pg MCHC 35.2 (32.0-37.0) g/dL Plt Count 269 (140-440) 10*3/uL MPV 10.5 (9.5-12.2) fL Immature Gran % (Auto) 0.2 % Neutrophils % 69.2 % Lymphocytes % 23.0 % Monocytes % 5.8 % Eosinophils % 1.2 % Basophils % 0.6 % Immature Gran # 0.03 (0.00-0.04) 10*3/uL Neutrophils # 8.40 H (1.80-7.70) 10*3/uL Lymphocytes # 2.80 (0.90-5.00) 10*3/uL Monocytes # 0.71 (0.20-1.00) 10*3/uL Eosinophils # 0.15 (0.04-0.35) 10*3/uL Basophils # 0.07 (0.00-0.10) 10*3/uL PT 13.2 H (10.0-12.5) sec INR 1.2 H (<1.2) APTT 32.1 H (22.0-30.0) sec Sodium 144 (137-145) mmol/L Potassium 4.2 (3.5-5.1) mmol/L Chloride 108 H (98-107) mmol/L Carbon Dioxide 19 L (22-30) mmol/L Anion Gap 17 mmol/L BUN 18 (9-20) mg/dL Creatinine 1.30 H (0.66-1.25) mg/dL Est GFR (CKD-EPI)AfAm 72 (>60 ml/min/1.73 sqM) Est GFR (CKD-EPI)NonAf 63 (>60 ml/min/1.73 sqM) Glucose 155 H (74-99) mg/dL Calcium 9.5 (8.4-10.2) mg/dL Magnesium 1.6 (1.6-2.3) mg/dL Total Bilirubin 1.8 H (0.2-1.3) mg/dL AST 21 (17-59) U/L ALT 24 (4-49) U/L Alkaline Phosphatase 101 (38-126) U/L Troponin I (0.000-0.034) ng/mL Total Protein 7.7 (6.3-8.2) g/dL Albumin 4.7 (3.5-5.0) g/dL 12/30/24 Range/Units 07:35 WBC (4.50-10.00) 10*3/uL RBC (4.40-5.60) 10*6/uL Hgb (13.0-17.0) g/dL Hct (39.6-50.0) % MCV (80.0-97.0) fL MCH (27.0-32.0) pg MCHC (32.0-37.0) g/dL Plt Count (140-440) 10*3/uL MPV (9.5-12.2) fL Immature Gran % (Auto) % Neutrophils % % Lymphocytes % % Monocytes % % Eosinophils % % Basophils % % Immature Gran # (0.00-0.04) 10*3/uL Neutrophils # (1.80-7.70) 10*3/uL Lymphocytes # (0.90-5.00) 10*3/uL Monocytes # (0.20-1.00) 10*3/uL Eosinophils # (0.04-0.35) 10*3/uL Basophils # (0.00-0.10) 10*3/uL PT (10.0-12.5) sec INR (<1.2) APTT (22.0-30.0) sec Sodium (137-145) mmol/L Potassium (3.5-5.1) mmol/L Chloride (98-107) mmol/L Carbon Dioxide (22-30) mmol/L Anion Gap mmol/L BUN (9-20) mg/dL Creatinine (0.66-1.25) mg/dL Est GFR (CKD-EPI)AfAm (>60 ml/min/1.73 sqM) Est GFR (CKD-EPI)NonAf (>60 ml/min/1.73 sqM) Glucose (74-99) mg/dL Calcium (8.4-10.2) mg/dL Magnesium (1.6-2.3) mg/dL Total Bilirubin (0.2-1.3) mg/dL AST (17-59) U/L ALT (4-49) U/L Alkaline Phosphatase (38-126) U/L Troponin I <0.012 (0.000-0.034) ng/mL Total Protein (6.3-8.2) g/dL Albumin (3.5-5.0) g/dL Disposition Clinical Impression: Atrial flutter with rapid ventricular response Disposition: HOME SELF-CARE Condition: Good Instructions (If sedation given, give patient instructions): Atrial Flutter (ED) Additional Instructions: Patient should follow-up with cardiology Patient should return if there is palpitations chest pain or difficulty breath ing. Is patient prescribed a controlled substance at d/c from ED?: No Referrals: Wilfrid Cheung MD [Primary Care Provider] - 1-2 days Time of Disposition: 09:26
[2024-12-30 07:46] LABS: Basophils # (A) 0.07 10*3/uL (0.00-0.10); Basophils % (A) 0.6 %; Eosinophils # (A) 0.15 10*3/uL (0.04-0.35); Eosinophils % (A) 1.2 %; HCT 49.5 % (39.6-50.0); HGB 17.4 g/dL (13.0-17.0); Lymphocytes # (A) 2.80 10*3/uL (0.90-5.00); Lymphocytes % (A) 23.0 %; MCH 31.4 pg (27.0-32.0); MCHC 35.2 g/dL (32.0-37.0); MCV 89.2 fL (80.0-97.0); Monocytes # (A) 0.71 10*3/uL (0.20-1.00); Monocytes % (A) 5.8 %; Neutrophils # (A) 8.40 10*3/uL (1.80-7.70); Neutrophils % (A) 69.2 %; Platelet Count 269 10*3/uL (140-440); RBC 5.55 10*6/uL (4.40-5.60); RDW 13.2 % (11.5-14.5); WBC 12.16 10*3/uL (4.50-10.00)
[2024-12-30 07:54] LABS: INR 1.2 (<1.2); Partial Thromboplastin Time 32.1 sec (22.0-30.0); Prothrombin Time 13.2 sec (10.0-12.5)
[2024-12-30 07:57] LABS: ALT 24 U/L (4-49); AST 21 U/L (17-59); African American GFR (CKD) 72 (>60 ml/min/1.73 sqM); Albumin 4.7 g/dL (3.5-5.0); Alkaline Phosphatase 101 U/L (38-126); Anion Gap 17 mmol/L; Blood Urea Nitrogen 18 mg/dL (9-20); Calcium 9.5 mg/dL (8.4-10.2); Carbon Dioxide 19 mmol/L (22-30); Chloride 108 mmol/L (98-107); Glucose 155 mg/dL (74-99); Magnesium 1.6 mg/dL (1.6-2.3); Non-African American GFR(CKD) 63 (>60 ml/min/1.73 sqM); Potassium 4.2 mmol/L (3.5-5.1); Sodium 144 mmol/L (137-145); Total Protein 7.7 g/dL (6.3-8.2)
[2024-12-30] MEDS: DILTIAZEM 125 MG in DEXTROSE 5% IN WATER 100 ML IV SCH (08:00)
[2024-12-30] MEDS: DILTIAZEM 5 MG/ML 5 ML VIAL IVP STA (08:00)
--- NOTE | 2024-12-30 08:10 | XR ---
Chest, 2 view. CLINICAL INDICATION: Male, 54 years old with history of dysrhythmia COMPARISON: TECHNIQUE: PA and lateral views the chest are obtained. FINDINGS: The lungs are clear and there is no consolidative or interstitial opacity. There is no pleural effusion or pneumothorax. The heart, pulmonary vasculature, mediastinum and lesly appear normal. The osseous structures are intact. IMPRESSION: No significant abnormality seen. No acute cardiopulmonary disease. [facility], , 12/30/2024 8:08 AM
[2024-12-30 09:08] VITALS: BP 129/76; PULSE 90; RESP 16
[2024-12-30 09:35] VITALS: TEMP 98
[2024-12-30 09:52] LABS: Barbiturate Screen,Urine Not Detected (NotDetected); Benzodiazepines Screen,Urine Not Detected (NotDetected); Opiate Screen,Urine Not Detected (NotDetected); Oxycodone Screen, Urine Not Detected (NotDetected); Phencyclidine Screen,Urine Not Detected (NotDetected); Tricyclic Antidepressant,Urine Not Detected (NotDetected); Urn Cannabinoid Scrn Not Detected (NotDetected)
== END 2024-12-30 09:35 | disposition home or self-care (01) ==
LOC: EC 06:58
DX: I48.92 Unspecified atrial flutter (principal); Z88.2 Allergy status to sulfonamides
CPT/HCPCS: 36415; 93005; 80053; 83735; 84484; 85025; 85610; 85730; 80306; 71046; 99285; 96365; J1163 ×2